=== PATIENT | male | born 1950 | race Caucasian/White ===

== ENCOUNTER 2020-06-27 19:14 | Inpatient (IN) | payer OTHER, MEDICARE, SELFPAY ==
[2020-06-27 19:15] VITALS: BP 143/74; PULSE 74; RESP 16; TEMP 36.8; O2SAT 95; BMI 25.7
[2020-06-27 19:31] LABS: Absolute Lymphocyte Count 0.45 X10^3/uL (0.83-4.51); Absolute Neutrophil Count 4.8 X10^3/uL (2.0-7.7); Basophil# 0.01 X10^3/uL; Basophil% 0.2 % (0-1); Eosinophil# 0.05 X10^3/uL; Eosinophils% 0.8 % (0-5); Hematocrit 32.4 % (40-54); Hemoglobin 9.9 g/dL (13.0-16.5); Lymphocyte # 0.45 X10^3/ul (4.0); Lymphocyte % 7.5 % (19-41); Mean Corp Hgb Conc 30.6 g/dL (32-36); Mean Corpuscular Hgb 29.8 pg (27.0-32.0); Mean Corpuscular Volume 97.6 fL (80-94); Mean Platelet Vol. 9.7 fl (6.2-12.0); Monocyte# 0.63 X10^3/uL; Monocyte% 10.5 % (0-10); NRBC Flagged by Analyzer 0 % (0-5); Neutrophil # 4.79 X10^3/uL (2.7-7.7); Neutrophil % 79.5 % (47-70); POSITIVE DIFFERENTIAL YES; Platelet Count 164 K/mm3 (150-450); RBC Distribution Width SD 46.5 fl (35.1-43.9); Red Blood Count 3.32 M/mm3 (4.6-6.2)
[2020-06-27 19:32] LABS: Differential Indicated SCAN CRITERIA MET
[2020-06-27 19:47] LABS: Anion Gap 10 (5-15); BUN 83 mg/dL (7-18); BUN/Creat Ratio 16.8 RATIO (10-20); Calcium,Total 8.3 mg/dL (8.5-10.1); Chloride 112 mmol/L (98-107); Creatinine, Serum 4.93 mg/dL (0.70-1.30); EST Glomerular Filtration Rate 13 mL/min (>60); Est Glom Filt Rate - Afr Amer 15 mL/min (>60); Estimated Creatinine Clearance 12.47 ml/min; Glucose 108 mg/dL (74-106); Potassium 5.9 mmol/L (3.5-5.1); Sodium Level 141 mmol/L (136-145)
[2020-06-27 20:22] LABS: Differential Comment SCANNED
--- NOTE | 2020-06-27 21:34 | US_ITS ---
HISTORY: Right lower extremity redness. Swelling. Open cysts. Cellulitis. EXAMINATION: US Venous Duplex LE Unilat / Limited TECHNIQUE: Caba scale, pulse wave, and color flow Doppler imaging was performed of the lower extremity venous system. The right greater saphenous, common femoral, femoral, and popliteal veins were interrogated. COMPARISON: None. 5 images end 11 cine clips. FINDINGS: Atherosclerotic disease is present within the right common femoral artery There is normal compression, augmentation, and signal throughout the visualized deep lower extremity veins. The left common femoral vein was also imaged. No Intraluminal filling defects are perceived within the insonated veins. US/Venous Duplex Imag/Limited/Uni IMPRESSION: No sonographic evidence of deep venous thrombosis. at 0011 Reported and signed by: Narendra Bailey MD Electronically Signed: Narendra Bailey MD at 0:09 EDT Tel , Service support ,
--- NOTE | 2020-06-27 22:28 | ED.VISSUMM ---
- ER Visit Summary Date of Service: 06/27/20 Chief Complaint: Cellulitis History of Present Illness: The patient is a 70 M presenting with cellulitis right lower extremity. This started approximately 1 week ago and has been progressively worsening. He states he noticed a cyst on his right lower extremity that is now increasing in size. He saw his primary care physician and had a outpatient ultrasound ordered which is scheduled for next week. He denies fever, chest pain, shortness of breath, other symptoms. He is currently awaiting kidney transplant. Physical Examination: Vitals are stable. Patient is afebrile. Alert no acute distress. HEENT exam is unremarkable. Neck is supple. Lungs are clear and equal bilaterally. Heart is regular rate and rhythm. Extremities he has erythema below right knee. He has 2 small fluctuant abscesses lateral aspect of right lower extremity. Normal distal pulses. Skin is warm and dry. No focal neurologic deficit. Remainder of exam is unremarkable. Emergency Department Course and Treatment: I&D was performed. Anesthetized with lidocaine. 2 small abscesses are drained. Incised with 11 blade. Small amount of pus was drained. Irrigated with saline. Wound and blood cultures were sent. He was given clindamycin IV. CBC, chemistries unremarkable other than BUN 83, creatinine 4.93, potassium 5.9. Venous Doppler shows no evidence of DVT. Discussed with the hospitalist. He was given albuterol, insulin, glucose for his hyperkalemia. He will be admitted. Disposition: Admission Impression: Right lower extremity cellulitis, I&D, hyperkalemia This note was generated with Smart Eye dictation software. It may contain incorrect words, spelling, and punctuation that were not noted in review of the chart prior to signing ED Disposition - Plan for ED Patient:
--- NOTE | 2020-06-27 22:48 | HP.PCM_ITS ---
Problem List (1) Cellulitis Status: Acute History of Present Illness Date of Admission: 06/27/20 Chief Complaint: Erythema of his right leg. The patient is a 70 year old M with a significant history of end-stage renal disease; right kidney transplantation and currently on kidney transplant list; and hypertension who presents to the emergency department with erythema of his right leg that started about 3 days ago. Associated with his symptoms is pain and swelling of his right leg. About a week ago he began to have bullous lesions on his right leg. Two of these bullous lesions increase in size tremendously before presentation. Emergency department doctor incised and drained the 2 biggest bullous lesions.. Because of the bullous lesions patient went to PCPs office and venous Dopplers of his right extremity was ordered but not done. At emergency department venous duplex was obtained. Venous duplex did not show any DVT. Past Medical History Medical History: Medical History (Last Reviewed 06/28/20 @ 04:[address] Curry Jaimes MD) Kidney transplant candidate Z76.82 Hypertension I10 Allergies cephalexin [From Keflex] Allergy (Verified 06/27/20 19:18) Swelling triamcinolone [From Kenalog] Allergy (Verified 06/27/20 19:18) Swelling Home Medications: Ambulatory Orders Medication Instructions Recorded Amlodipine-Benazepril 2.5-10 1 tab PO DAILY 06/27/20 Prednisone 5 mg PO DAILY 06/27/20 Torsemide [Demadex] 20 mg PO DAILY 06/27/20 Amlodipine/Benazepril [Lotrel 1 tab PO QHS 06/28/20 10-40 MG Capsule] Cyclosporine 100 mg PO BID 06/28/20 Gabapentin [Neurontin] 200 mg PO DAILY 06/28/20 Mycophenolate Mofetil [Cellcept] 1,000 mg PO BID 06/28/20 Surgical History: Surgical History (Last Updated 06/28/20 @ 02:[address] Curry Jaimes MD) Kidney transplant recipient Z94.0 Status post fracture of right tibia Z87.81 Smoking Status: Never smoker - *Family History Maternal History Items: Stroke Paternal History Items: Heart Disease Review of Systems Constitutional: Denies: Chills, Fever, Weight Change HEENT: Denies: Head Aches, Sinus Congestion, Sinus Drainage Cardiovascular: Denies: Chest Pain, Palpitations Respiratory: Denies: Cough, Shortness of breath at rest, Sputum production Gastrointestinal: Denies: Abdominal Pain, Nausea, Vomiting Genitourinary: Denies: Dysuria Musculoskeletal: Denies: Joint Pain, Joint Tenderness Skin: Reports: Lesions - Bolus lesions, Skin Changes - Erythema of right leg;. Denies: Rash, Wounds Neurological: Reports: Tremor. Denies: Focal weakness, Numbness, Tingling Psychiatric: Denies: Anxiety, Depression, Homicidal Ideations, Suicidal Ideations Hematologic/ Lymphatic: Denies: Easy Bruising, Easy Bleeding VTE Information - Inpt Only VTE Present on Admission: No VTE Mechan Device Prophylaxis: None VTE Pharm Prophylaxis ordered?: Yes Patient Problems: Active and Suspected Problems (Last Updated 06/28/20 @ 02:[address] Curry Jaimes MD) Cellulitis (Acute) - Physical Exam Vitals/I&O's: Vital Signs Temp Pulse Resp BP Pulse Ox 98.2 F 74 16 143/74 H 95 06/27/20 19:15 06/27/20 19:15 06/27/20 19:15 06/27/20 19:15 06/27/20 19:15 Oxygen Delivery Method Room Air Weight: 70.307 kg Body Mass Index (BMI) 25.7 General: Alert, Oriented x3, Cooperative HEENT: Atraumatic, PERRLA, EOMI, Normocephalic Neck: Supple, No JVD, Negative Carotid Bruits Lungs: Clear to auscultation, Normal air movement Cardiovascular: Regular rate, Normal S1, Normal S2, Murmur - At the mitral area, chronic. Patient stated that it developed after dialysis access graft was placed. Abdomen: Bowel Sounds Present, Soft, Non Tender Extremities: No edema, Capillary Refill Less than 3 Seconds, - - Dialysis access graft in right, bruit and thrill. Skin: No rashes, No breakdown, - - Edema and erythema of right leg. Incised bullous lesions; palpable nodule. Musculoskeletal: No Tenderness to Palpation of Joints or Extremities Neurological: Cranial nerves II-XII grossly intact, - - Tremulousness Psych/Mental Status: Normal Affect, Appropriate Laboratory Results 06/27/20 19:25: WBC 6.0, RBC 3.32 L, Hgb 9.9 L, Hct 32.4 L, MCV 97.6 H, MCH 29.8, MCHC 30.6 L, RDW Std Deviation 46.5 H, RDW Coeff of Rani 13.0, Plt Count 164, MPV 9.7, Immature Gran % (Auto) 1.500 H, Neut % (Auto) 79.5 H, Lymph % (Auto) 7.5 L, [place] % (Auto) 10.5 H, Eos % (Auto) 0.8, Baso % (Auto) 0.2, Absolute Neuts (auto) 4.8, Absolute Lymphs (auto) 0.45 L, Nucleated RBC % 0, Differential Comment SCANNED 06/27/20 19:25: Sodium 141, Potassium 5.9 H, Chloride 112 H, Carbon Dioxide 19.0 L, Anion Gap 10, BUN 83 H, Creatinine 4.93 H, Estim Creat Clear Calc 12.47, Est GFR (MDRD) Af Amer 15 L, Est GFR (MDRD) Non-Af 13 L, BUN/Creatinine Ratio 16.8, Glucose 108 H, Calcium 8.3 L Current Medications Clindamycin Phosphate 600 mg/ (Dextrose) 54 mls @ 100 mls/hr IV X1 ONE Stop: 06/27/20 22:56 Assessment/Plan All Active Problems (Last Updated 06/28/20 @ 02:[address] Curry Jaimes MD) Cellulitis (Acute) The patient is a 70 year old M with a significant history of end-stage renal disease; right kidney transplantation and currently on kidney transplant list; and hypertension who presents to the emergency department with erythema of his right leg; swelling and pain of same extremity and bullous lesions of the same extremity. Cellulitis with bullae. Incision and drainage of 2 bullae at the emergency department. Patient is allergic to cephalexin. Clindamycin was ordered at the ED and continued. Blood culture x2 was ordered at the emergency department; follow. Gram stain and wound culture of bullous lesions was obtained at emergency department; follow. Hyperkalemia His potassium on presentation was 5.9 EKG showed tall T waves and T wave inversion in lateral leads. Review of previous records shows history of left ventricular hypertrophy. Discussed emergency department doctor who gave albuterol; calcium gluconate; insulin and dextrose. Kayexalate and MiraLAX ordered. Serum bicarbonate was ordered. However patient refused stating that because of his history of kidney disease he has been advised not to take bicarbonate. End-stage renal disease He reports baseline creatinine between 4-5.6. On presentation his creatinine was 4.93, stable. Patient is on transplantation list. On home Demadex. Therapeutic interchange with furosemide while inpatient. Hypertension On presentation blood pressure was now within goal Amlodipine and BRITNI inhibitor continued Diuretics as above Trend blood pressure and adjust blood pressure medications. History of kidney transplant Prednisone, CellCept, and cyclosporine continued. DVT prophylaxis Subcutaneous heparin. Inpatient E&M: 20183 Init Hosp L3
--- NOTE | 2020-06-27 22:55 | EKG12_ITS ---
Test Reason : DYSRHYTHMIA Blood Pressure : / mmHG Vent. Rate : 076 BPM Atrial Rate : 076 BPM P-R Int : 196 ms QRS Dur : 092 ms QT Int : 372 ms P-R-T Axes : 037 043 073 degrees QTc Int : 418 ms Sinus rhythm with Premature atrial complexes Voltage criteria for left ventricular hypertrophy T wave abnormality, consider lateral ischemia Abnormal ECG Confirmed by MATT VU, MALAIKA ([id number]), editor book MIR DELACRUZ ([id number]) on 06/30/2020 1:50:46 PM Referred By: Confirmed By:MALAIKA GUTIERREZ MD
[2020-06-27 23:15] VITALS: PULSE 76; RESP 16
[2020-06-27] MEDS: Albuterol 2.5 MG/3 ML VIAL.NEB. INHALATION (23:15)
[2020-06-27] MEDS: Insulin Lispro 5 UNIT in Syringe 0 ML 3 UNIT IV (23:26)
[2020-06-27] MEDS: Dextrose 50%-Water 25 GM/50 ML DISP.SYRIN IV (23:27)
[2020-06-28] VITALS (12 sets, daily range): BP systolic 120–144; BP diastolic 53–66; PULSE 65–97; RESP 15–18; TEMP 36.6–37.4; O2SAT 98–100; BMI 25.7; BMI 25.8
[2020-06-28] MEDS: Calcium Gluconate 1 GM/10 ML Vial IV (00:17)
[2020-06-28] MEDS: Polyethylene Glycol 3350 17 GM PACKET 34 GM PO (01:42)
[2020-06-28] MEDS: Sodium Polystyrene Sulfonate 15 GM/60 ML UDC 30 GM PO (02:00)
[2020-06-28] MEDS: 0.9% Saline Lock 10 ML Syringe IV ×2 (05:14→14:00)
[2020-06-28 06:48] LABS: Absolute Lymphocyte Count 0.72 X10^3/uL (0.83-4.51); Absolute Neutrophil Count 2.9 X10^3/uL (2.0-7.7); Basophil# 0.02 X10^3/uL; Basophil% 0.4 % (0-1); Eosinophil# 0.09 X10^3/uL; Hematocrit 28.3 % (40-54); Hemoglobin 8.5 g/dL (13.0-16.5); Lymphocyte # 0.72 X10^3/ul (4.0); Mean Corpuscular Hgb 28.9 pg (27.0-32.0); Mean Corpuscular Volume 96.3 fL (80-94); Mean Platelet Vol. 9.9 fl (6.2-12.0); Monocyte# 0.75 X10^3/uL; Monocyte% 16.7 % (0-10); NRBC Flagged by Analyzer 0 % (0-5); Neutrophil # 2.86 X10^3/uL (2.7-7.7); Neutrophil % 63.8 % (47-70); Platelet Count 157 K/mm3 (150-450); Red Blood Count 2.94 M/mm3 (4.6-6.2); White Blood Count 4.5 K/mm3 (4.4-11.0)
[2020-06-28 07:05] LABS: Anion Gap 9 (5-15); BUN 86 mg/dL (7-18); BUN/Creat Ratio 17.7 RATIO (10-20); Calcium,Total 8.4 mg/dL (8.5-10.1); Chloride 113 mmol/L (98-107); Creatinine, Serum 4.85 mg/dL (0.70-1.30); EST Glomerular Filtration Rate 13 mL/min (>60); Est Glom Filt Rate - Afr Amer 15 mL/min (>60); Estimated Creatinine Clearance 12.68 ml/min; Glucose 119 mg/dL (74-106); Potassium 5.1 mmol/L (3.5-5.1); Sodium Level 141 mmol/L (136-145)
[2020-06-28] MEDS: Furosemide 40 MG Tablet PO (08:22)
[2020-06-28] MEDS: Mycophenolate Mofetil 250 MG Capsule 1000 MG PO ×2 (08:22→21:19)
[2020-06-28] MEDS: predniSONE 5 MG Tablet PO (08:22)
[2020-06-28] MEDS: amLODIPine 2.5 MG Tablet PO (08:23)
[2020-06-28] MEDS: Lisinopril 10 MG Tablet PO (08:24)
--- NOTE | 2020-06-28 08:46 | PN_ITS ---
Patient Problems: Active and Suspected Problems (Last Reviewed 06/28/20 @ 04:[address] Curry Jaimes MD) Cellulitis (Acute) Subjective: Doing well, no issues overnight. States that the pain in his right leg is better Vitals/I&O's: Vital Signs Temp Pulse Resp BP Pulse Ox 97.8 F 74 16 143/64 H 99 06/28/20 05:20 06/28/20 08:15 06/28/20 05:20 06/28/20 08:15 06/28/20 05:20 Oxygen Delivery Method Room Air Weight: 154 lb 12.232 oz Body Mass Index (BMI) 25.7 Intake and Output for Last 24 Hours 06/26/20 06/27/20 06/28/20 23:59 23:59 23:59 Intake Total 0.05 / 0.05 548 / 548 Output Total 230 / 230 Balance 0.05 / 0.05 318 / 318 General: Alert, Oriented x3, Cooperative, No apparent distress HEENT: Atraumatic, PERRLA, EOMI, Normocephalic Oral: Moist Mucosa Neck: Supple, No JVD Lungs: Clear to auscultation, Normal air movement, No rhonchi, No wheeze, No rales Cardiovascular: Regular rate, Regular Rhythm, Normal S1, Normal S2, Murmur - Secondary to his left upper extremity fistula Abdomen: Soft, Non Tender, Non-Distended, No Hepato-splenomegaly Extremities: No edema, Capillary Refill Less than 3 Seconds Skin: Ulcer/ Wound - Sized lesions in his right leg, currently dressed Neurological: Neuro grossly intact, Sensory exam intact to light touch and pain Psych/Mental Status: Normal Affect, Appropriate Laboratory Results 06/27/20 19:25: WBC 6.0, RBC 3.32 L, Hgb 9.9 L, Hct 32.4 L, MCV 97.6 H, MCH 29.8, MCHC 30.6 L, RDW Std Deviation 46.5 H, RDW Coeff of Rani 13.0, Plt Count 164, MPV 9.7, Immature Gran % (Auto) 1.500 H, Neut % (Auto) 79.5 H, Lymph % (Auto) 7.5 L, [place] % (Auto) 10.5 H, Eos % (Auto) 0.8, Baso % (Auto) 0.2, Absolute Neuts (auto) 4.8, Absolute Lymphs (auto) 0.45 L, Nucleated RBC % 0, Differential Comment SCANNED 06/27/20 19:25: Sodium 141, Potassium 5.9 H, Chloride 112 H, Carbon Dioxide 19.0 L, Anion Gap 10, BUN 83 H, Creatinine 4.93 H, Estim Creat Clear Calc 12.47, Est GFR (MDRD) Af Amer 15 L, Est GFR (MDRD) Non-Af 13 L, BUN/Creatinine Ratio 16.8, Glucose 108 H, Calcium 8.3 L 06/28/20 06:13: WBC 4.5, RBC 2.94 L, Hgb 8.5 L, Hct 28.3 L, MCV 96.3 H, MCH 28.9, MCHC 30.0 L, RDW Std Deviation 46.0 H, RDW Coeff of Rani 13.0, Plt Count 157, MPV 9.9, Immature Gran % (Auto) 1.100 H, Neut % (Auto) 63.8, Lymph % (Auto) 16.0 L, [place] % (Auto) 16.7 H, Eos % (Auto) 2.0, Baso % (Auto) 0.4, Absolute Neuts (auto) 2.9, Absolute Lymphs (auto) 0.72 L, Nucleated RBC % 0 06/28/20 06:13: Sodium 141, Potassium 5.1, Chloride 113 H, Carbon Dioxide 19.0 L , Anion Gap 9, BUN 86 H, Creatinine 4.85 H, Estim Creat Clear Calc 12.68, Est GFR (MDRD) Af Amer 15 L, Est GFR (MDRD) Non-Af 13 L, BUN/Creatinine Ratio 17.7, Glucose 119 H, Calcium 8.4 L Current Medications Acetaminophen (Tylenol) 650 mg PO Q6H PRN PRN PRN Reason: Pain Score 1-10/Temp > 100.7 F Amlodipine Besylate (Norvasc) 2.5 mg PO DAILY [facility] Last Admin: 06/28/20 08:23 Dose: 2.5 mg Documented by: Cyclosporine (Gengraf) 100 mg PO BID [facility] Last Admin: 06/28/20 08:28 Dose: 100 mg Documented by: Furosemide (Lasix) 40 mg PO DAILY [facility] Last Admin: 06/28/20 08:22 Dose: 40 mg Documented by: Gabapentin (Neurontin) 200 mg PO DAILY [facility] Heparin Sodium (Porcine) (Heparin Na) 5,000 unit SC Q8 [facility] Last Admin: 06/28/20 05:23 Dose: Not Given Documented by: Clindamycin Phosphate 600 mg/ (Dextrose) 54 mls @ 100 mls/hr IV Q8 [facility] Last Infusion: 06/28/20 05:53 Dose: Infused Documented by: Lisinopril (Zestril) 10 mg PO DAILY [facility] Last Admin: 06/28/20 08:24 Dose: 10 mg Documented by: Melatonin (Melatonin) 3 mg PO QHS PRN PRN PRN Reason: INSOMNIA Mycophenolate Mofetil (Cellcept) 1,000 mg PO BID [facility] Last Admin: 06/28/20 08:22 Dose: 1,000 mg Documented by: Nutritional Formula (Lactose Free) (Ensure Enlive) 120 ml PO 4X/DAY [facility] Last Admin: 06/28/20 08:12 Dose: 120 ml Documented by: Ondansetron HCl (Zofran) 4 mg IV Q8H PRN PRN PRN Reason: NAUSEA/VOMITING Polyethylene Glycol (Miralax) 34 gm PO X1 PRN PRN Reason: Bowel Movement Prednisone () 5 mg PO DAILYCM [facility] Last Admin: 06/28/20 08:22 Dose: 5 mg Documented by: Sodium Chloride () 10 - 40 ml IV UD PRN PRN Reason: SALINE FLUSH Last Admin: 06/28/20 05:14 Dose: 10 ml Documented by: STROKE Vital Signs/Narrative: Vital Signs Temp Pulse Resp BP BP Pulse Ox 06/28/20 08:15 74 143/64 H 06/28/20 06:59 66 06/28/20 05:20 97.8 F 65 16 120/53 L 99 Medical Necessity - Tobacco Use Smoking Status: Never smoker Assessment/Plan All Active Problems (Last Reviewed 06/28/20 @ 04:[address] Curry Jaimes MD) Cellulitis (Acute) 1. Right lower extremity cellulitis with bullous lesions -The bullous lesions were drained and sent for culture -He is allergic with Keflex secondary to swelling therefore he was started on clindamycin -Follow-up culture data 2. 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
--- NOTE | 2020-06-28 09:44 | CASEMGMT ---
RN CM Assessment Note Intro role of CM to patient in room. Patient is awake, alert and able to participate, however answers in brief responses and does not elaborate with answers. Presentation: erythem and swelling of R leg Diagnosis: cellulitis with bullous lesions PCP: Dr. Hallman Specialists: Transplant physicians @ [facility] Insurance: [id number] Preferred Pharmacy: [facility] Prescription Benefit: yes LNOK: , Ashly Phan Living Arrangements: Lives independently with his . States no care needs. Tranportation: drives DME: cpap only HHC: no history SNF: no history Patient DC Goals: home DC Plan: home. No care needs identified @ this time. CM available for discharge planning coordination. Contact CM for any concerns/needs that may arise. Bandar LOVEN RN ACM
[2020-06-28] MEDS: Gabapentin 100 MG Capsule 200 MG PO (21:19)
[2020-06-29 03:00] VITALS: PULSE 64
[2020-06-29 03:15] VITALS: BP 129/60; PULSE 64; RESP 16; TEMP 36.7; O2SAT 100
[2020-06-29] MEDS: 0.9% Saline Lock 10 ML Syringe IV (05:57)
[2020-06-29 06:05] LABS: Absolute Lymphocyte Count 0.87 X10^3/uL (0.83-4.51); Absolute Neutrophil Count 2.8 X10^3/uL (2.0-7.7); Basophil# 0.02 X10^3/uL; Basophil% 0.5 % (0-1); Eosinophil# 0.18 X10^3/uL; Eosinophils% 4.2 % (0-5); Hematocrit 27.6 % (40-54); Hemoglobin 8.4 g/dL (13.0-16.5); Lymphocyte # 0.87 X10^3/ul (4.0); Lymphocyte % 20.1 % (19-41); Mean Corp Hgb Conc 30.4 g/dL (32-36); Mean Corpuscular Volume 95.2 fL (80-94); Monocyte# 0.47 X10^3/uL; Monocyte% 10.9 % (0-10); NRBC Flagged by Analyzer 0 % (0-5); Neutrophil # 2.76 X10^3/uL (2.7-7.7); Neutrophil % 63.6 % (47-70); Platelet Count 162 K/mm3 (150-450); RBC Distribution Width CV 12.9 % (11.6-14.6); RBC Distribution Width SD 45.1 fl (35.1-43.9); White Blood Count 4.3 K/mm3 (4.4-11.0)
[2020-06-29 06:27] LABS: Anion Gap 9 (5-15); BUN 84 mg/dL (7-18); BUN/Creat Ratio 17.9 RATIO (10-20); Calcium,Total 7.9 mg/dL (8.5-10.1); Chloride 113 mmol/L (98-107); Creatinine, Serum 4.69 mg/dL (0.70-1.30); EST Glomerular Filtration Rate 13 mL/min (>60); Est Glom Filt Rate - Afr Amer 16 mL/min (>60); Estimated Creatinine Clearance 13.11 ml/min; Glucose 99 mg/dL (74-106); Potassium 5.3 mmol/L (3.5-5.1); Sodium Level 142 mmol/L (136-145)
[2020-06-29 07:00] VITALS: PULSE 63
[2020-06-29 08:07] VITALS: BP 129/71; PULSE 65; RESP 20; TEMP 36.4; O2SAT 96
[2020-06-29] MEDS: Lisinopril 10 MG Tablet PO ×2 (08:16→08:20)
[2020-06-29] MEDS: predniSONE 5 MG Tablet PO ×2 (08:19)
[2020-06-29] MEDS: Furosemide 40 MG Tablet PO ×2 (08:20)
[2020-06-29] MEDS: Mycophenolate Mofetil 250 MG Capsule 1000 MG PO (08:22)
[2020-06-29] MEDS: amLODIPine 2.5 MG Tablet PO (08:23)
--- NOTE | 2020-06-29 09:07 | DCINST_ITS ---
- Discharge Diagnoses Current Active Problems: Current Active and Chronic Problems (Last Reviewed 06/28/20 @ 04:[address] Curry Jaimes MD) Cellulitis (Acute) You will use the following diet at home:: Cardiac Your food should be the consistency of: Regular Your liquids should be the consistency of: Regular/Thin Discharge Activity: Return to Normal Activity Call your doctor if you observe: Fever of 101 or Higher, Shortness of breath, Dizziness, Fainting spells, Swelling in the ankles, Chest pain, Increased palpitations (irregular heartbeat) Allergies/Adverse Reactions: Allergies cephalexin [From Keflex] Allergy (Verified 06/27/20 19:18) Swelling triamcinolone [From Kenalog] Allergy (Verified 06/27/20 19:18) Swelling Medications to take at Discharge Amlodipine-Benazepril 2.5-10 1 tab PO DAILY 06/27/20 Prednisone 5 mg PO DAILY 06/27/20 Torsemide [Demadex] 20 mg PO DAILY 06/27/20 Amlodipine/Benazepril [Lotrel 10-40 MG Capsule] 1 tab PO QHS 06/28/20 Cyclosporine 100 mg PO BID 06/28/20 Gabapentin [Neurontin] 200 mg PO DAILY 06/28/20 Mycophenolate Mofetil [Cellcept] 1,000 mg PO BID 06/28/20 Clindamycin HCl 300 mg PO 4X/DAY #40 cap 06/29/20 The following prescriptions were given: Clindamycin HCl 300 mg PO 4X/DAY #40 cap Transmission Status: Pending to [id number] Primary Care Physician: Barry Hallman DO [Primary Care Provider] - Please follow up with your Primary Care Physician in: 3-5 days Test Results: Test results from this visit will be discussed in further detail at your follow- up appointment, if applicable.
--- NOTE | 2020-06-29 09:25 | DS.PCM_ITS ---
Discharge Date and Diagnosis - Problem List Patient Problems: Active and Suspected Problems (Last Reviewed 06/28/20 @ 04:[address] Curry Jaimes MD) Cellulitis (Acute) Date of Admission: 06/27/20 Date of Discharge: 06/29/20 - Primary Discharge Diagnosis Acute Problems: Active Problems (Last Reviewed 06/28/20 @ 04:[address] Curry Jaimes MD) Cellulitis (Acute) Hospital Course and Treatment Imaging Results: Clinical Impression(s) from Imaging Studies Venous Duplex 06/27/20 21:34 IMPRESSION: No sonographic evidence of deep venous thrombosis. at 0011 Reported and signed by: Narendra Bailey MD Electronically Signed: Narendra Bailey MD at 0:09 EDT Tel , Service support , Operations: None Procedures: None Summary of Care Provided: Per HPI: The patient is a 70 year old M with a significant history of end-stage renal disease; right kidney transplantation and currently on kidney transplant list; and hypertension who presents to the emergency department with erythema of his right leg that started about 3 days ago. Associated with his symptoms is pain and swelling of his right leg. About a week ago he began to have bullous lesions on his right leg. Two of these bullous lesions increase in size tremendously before presentation. Emergency department doctor incised and drained the 2 biggest bullous lesions.. Because of the bullous lesions patient went to PCPs office and venous Dopplers of his right extremity was ordered but not done. At emergency department venous duplex was obtained. Venous duplex did not show any DVT. Hospital Course: 1. Right lower extremity cellulitis with bullous [id number] male with a history of kidney failure status post kidney transplant he was on the list for another kidney transplant presents with cellulitis. He states that it had started about a week ago and had gone to his primary care doctor who had ordered an ultrasound of his leg however while waiting to get the ultrasound the symptoms got worse and then he developed 2 bullous lesions that were drained in the ER. These have both grown staph aureus sensitive to clindamycin. 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 I discussed with him the risks and benefits of discharge and he expressed understanding. He will go home today with clindamycin for 10 days given his immunocompromise nature. He is to follow-up with his PCP in 3 to 5 days. 2. 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 His home medications were continued where appropriate Patient Problems: Active and Suspected Problems (Last Reviewed 06/28/20 @ 04:[address] Curry Jaimes MD) Cellulitis (Acute) - Physical Exam Vitals/I&O's: Vital Signs Temp Pulse Resp BP Pulse Ox 97.5 F L 65 20 H 129/71 H 96 06/29/20 08:07 06/29/20 08:07 06/29/20 08:07 06/29/20 08:07 06/29/20 08:07 Oxygen Flow Rate (L/min) 0 Oxygen Delivery Method Room Air Weight: 154 lb 12.232 oz Body Mass Index (BMI) 25.7 Intake and Output for Last 24 Hours 06/27/20 06/28/20 06/29/20 23:59 23:59 23:59 Intake Total 0.05 / 0.05 1696 / 1696 174 / 174 Output Total 230 / 230 Balance 0.05 / 0.05 1466 / 1466 174 / 174 General: Alert, Oriented x3, Cooperative, No apparent distress HEENT: Atraumatic, PERRLA, EOMI, Normocephalic Oral: Moist Mucosa Neck: Supple, No JVD Lungs: Clear to auscultation, Normal air movement, No rhonchi, No wheeze, No rales Cardiovascular: Regular rate, Regular Rhythm, Normal S1, Normal S2, Murmur - Secondary to his left upper extremity fistula Abdomen: Soft, Non Tender, Non-Distended, No Hepato-splenomegaly Extremities: No edema, Capillary Refill Less than 3 Seconds Skin: Ulcer/ Wound -2 nickel sized lesions on the lateral aspect of his right felix not draining and erythema is much improved per the patient. There is also a medial area of fluctuance that he says has gone down significantly since he started the antibiotics. Neurological: Neuro grossly intact, Sensory exam intact to light touch and pain Psych/Mental Status: Normal Affect, Appropriate Microbiology Past 72 Hours 06/27/20 21:45 Wound Abcess - Leg Gram Stain - Final 06/27/20 21:45 Wound Abcess - Leg Wound Culture - Final Staphylococcus aureus Laboratory Results 06/29/20 05:20: WBC 4.3 L, RBC 2.90 L, Hgb 8.4 L, Hct 27.6 L, MCV 95.2 H, MCH 29.0, MCHC 30.4 L, RDW Std Deviation 45.1 H, RDW Coeff of Rani 12.9, Plt Count 162, MPV 10.0, Immature Gran % (Auto) 0.700, Neut % (Auto) 63.6, Lymph % (Auto) 20.1, [place] % (Auto) 10.9 H, Eos % (Auto) 4.2, Baso % (Auto) 0.5, Absolute Neuts (auto) 2.8, Absolute Lymphs (auto) 0.87, Nucleated RBC % 0 06/29/20 05:20: Sodium 142, Potassium 5.3 H, Chloride 113 H, Carbon Dioxide 20.0 L, Anion Gap 9, BUN 84 H, Creatinine 4.69 H, Estim Creat Clear Calc 13.11, Est GFR (MDRD) Af Amer 16 L, Est GFR (MDRD) Non-Af 13 L, BUN/Creatinine Ratio 17.9, Glucose 99, Calcium 7.9 L Current Medications Acetaminophen (Tylenol) 650 mg PO Q6H PRN PRN PRN Reason: Pain Score 1-10/Temp > 100.7 F Amlodipine Besylate (Norvasc) 2.5 mg PO DAILY [facility] Last Admin: 06/29/20 08:23 Dose: 2.5 mg Documented by: Cyclosporine (Gengraf) 100 mg PO BID [facility] Last Admin: 06/29/20 08:19 Dose: 100 mg Documented by: Furosemide (Lasix) 40 mg PO DAILY [facility] Last Admin: 06/29/20 08:20 Dose: 40 mg Documented by: Gabapentin (Neurontin) 200 mg PO DAILY@2200 [facility] Last Admin: 06/28/20 21:19 Dose: 200 mg Documented by: Heparin Sodium (Porcine) (Heparin Na) 5,000 unit SC Q8 [facility] Last Admin: 06/29/20 05:57 Dose: Not Given Documented by: Clindamycin Phosphate 600 mg/ (Dextrose) 54 mls @ 100 mls/hr IV Q8 [facility] Last Infusion: 06/29/20 06:30 Dose: Infused Documented by: Lisinopril (Zestril) 10 mg PO DAILY [facility] Last Admin: 06/29/20 08:20 Dose: 10 mg Documented by: Melatonin (Melatonin) 3 mg PO QHS PRN PRN PRN Reason: INSOMNIA Mycophenolate Mofetil (Cellcept) 1,000 mg PO BID [facility] Last Admin: 06/29/20 08:22 Dose: 1,000 mg Documented by: Nutritional Formula (Lactose Free) (Ensure Enlive) 120 ml PO BID [facility] Last Admin: 06/29/20 08:21 Dose: 120 ml Documented by: Ondansetron HCl (Zofran) 4 mg IV Q8H PRN PRN PRN Reason: NAUSEA/VOMITING Polyethylene Glycol (Miralax) 34 gm PO X1 PRN PRN Reason: Bowel Movement [facility] Admin: 06/29/20 08:19 Dose: 5 mg Documented by: Sodium Chloride () 10 - 40 ml IV UD PRN PRN Reason: SALINE FLUSH Last Admin: 06/29/20 05:57 Dose: 10 ml Documented by: Discharge Activity: Return to Normal Activity Call your doctor if you observe: Fever of 101 or Higher, Shortness of breath, Dizziness, Fainting spells, Swelling in the ankles, Chest pain, Increased palpitations (irregular heartbeat) Home Medications: Medications to take at Discharge Amlodipine-Benazepril 2.5-10 1 tab PO DAILY 06/27/20 Prednisone 5 mg PO DAILY 06/27/20 Torsemide [Demadex] 20 mg PO DAILY 06/27/20 Amlodipine/Benazepril [Lotrel 10-40 MG Capsule] 1 tab PO QHS 06/28/20 Cyclosporine 100 mg PO BID 06/28/20 Gabapentin [Neurontin] 200 mg PO DAILY 06/28/20 Mycophenolate Mofetil [Cellcept] 1,000 mg PO BID 06/28/20 Clindamycin HCl 300 mg PO 4X/DAY #40 cap 06/29/20 Following Prescriptions Were Given to Patient: Clindamycin HCl 300 mg PO 4X/DAY #40 cap Transmission Status: Pending to [facility]30 Primary Care Physician: Hallman,Barry, DO [Primary Care Provider] - Please follow up with your Primary Care Physician in: 3-5 days Please Follow Up With: Barry Hallman DO Disposition: Home Minutes spent on discharge:: 35 Patient Condition:: Stable Medical Necessity - Tobacco Use Smoking Status: Never smoker Meaningful Use Info Meaningful Use Diagnoses (Choose all that apply): None applicable Inpatient E&M: 40420 Disch Hosp
== END 2020-06-29 12:28 | disposition home or self-care (01) | DRG 602 ==
LOC: ED 20:32 → PCU 06-28 00:18
PROVIDERS: Admitting Provider Hospitalist; Emergency Provider Emergency Medicine; PCP Student in an Organized Health Care Education/Training Program; Visit Provider Family Medicine
DX: L03.115 Cellulitis of right lower limb (principal); N18.6 End stage renal disease; I12.0 Hypertensive chronic kidney disease with stage 5 chronic kidney disease or end stage renal disease; Z94.0 Kidney transplant status; Z76.82 Awaiting organ transplant status; L02.415 Cutaneous abscess of right lower limb; E87.5 Hyperkalemia; Z79.899 Other long term (current) drug therapy; A49.01 Methicillin susceptible Staphylococcus aureus infection, unspecified site
CPT/HCPCS: 10060; 36415; 80048; 85025; 87040; 87070; 87077; 87186; 87205; 93005; 93971; 94640; 97802; 99282; A4216; J0610

== ENCOUNTER 2021-03-17 19:33 | Observation (INO) | payer OTHER, MEDICARE, SELFPAY ==
[2020-06-28 00:57] VITALS: BMI 25.7
[2021-03-17 19:35] VITALS: BP 129/65; PULSE 78; RESP 18; TEMP 37.1; O2SAT 99; BMI 25.0
--- NOTE | 2021-03-17 20:10 | EKG12_ITS ---
Test Reason : ABD LABS Blood Pressure : / mmHG Vent. Rate : 074 BPM Atrial Rate : 074 BPM P-R Int : 216 ms QRS Dur : 090 ms QT Int : 386 ms P-R-T Axes : 066 047 079 degrees QTc Int : 428 ms Sinus rhythm with 1st degree A-V block Voltage criteria for left ventricular hypertrophy Nonspecific T wave abnormality Abnormal ECG Confirmed by MATT VU, MALAIKA ([id number]), material expeditor LAINE HAMILTON ([id number]) on 03/20/2021 8:28:01 AM Referred By: CARRINGTON Confirmed By:MALAIKA GUTIERREZ MD
--- NOTE | 2021-03-17 20:28 | EX.ED.DYSGE1 ---
HPI <Dr. Curry Rico DO - Last Filed: 03/21/21 06:57> History of Present Illness Chief Complaint: Abn Labs Informant: patient Narrative Narrative: Patient is a 71-year-old male with a past medical history of kidney transplant 14 years ago. He is on immunosuppressants for this. His kidney function has been declining lately. He had outpatient lab testing to evaluate his anemia status. He was found to have hyperkalemia at that time. Patient has had some nausea over the past couple of days. He fluctuates between constipation diarrhea. He believes he is making less and less urine. He urinates approximately 3 times a day. He denies any urinary symptoms. Patient does have an AV fistula left arm. He states it has been accessed over the years for different things. He denies any fevers or chills. No chest pain, shortness of breath or heart palpitations. [facility] <Dr. Curry Rico DO - Last Filed: 03/21/21 06:57> [facility] Medical History (Updated 03/18/21 @ 22:[address] Curry Jaimes MD) Anxiety Depression Dialysis patient Hypertension Kidney disease Kidney transplant candidate Sleep apnea Home Medications Amlodipine-Benazepril 2.5-10 1 tab PO DAILY 06/27/20 [History Last Taken Unknown] prednisone 5 mg PO DAILY 06/27/20 [History Last Taken Unknown] torsemide 20 mg PO DAILY 06/27/20 [History Last Taken Unknown] Cyclosporine 100 mg PO BID 06/28/20 [History Last Taken Unknown] gabapentin 200 mg PO QHS 06/28/20 [History Last Taken Unknown] mycophenolate mofetil 1,000 mg PO BID 06/28/20 [History Last Taken Unknown] Allergy/AdvReac Type Severity Reaction Status Date / Time cephalexin [From Keflex] Allergy Swelling Verified 03/17/21 19:34 triamcinolone [From Kenalog] Allergy Swelling Verified 03/17/21 19:34 Family History Father CVA (cerebral vascular accident) Surgical History (Updated 03/18/21 @ 01:[address] Albaro Hernandez MD) Kidney transplant recipient Status post fracture of right tibia Social History Smoking Status: Never smoker ROS <Dr. Curry Rico DO - Last Filed: 03/21/21 06:57> ROS ED Constitutional Constitutional ED: Denies chills or fever(s) Eyes Eyes: Denies change in vision ENT ENT ED: Denies epistaxis or rhinorrhea Cardiovascular Cardiovascular: Denies chest pain or palpitations Respiratory/Chest Respiratory/Chest: Denies cough, dyspnea or dyspnea on exertion Gastrointestinal Gastrointestinal: Reports constipation, diarrhea, nausea and vomiting; Denies abdominal pain Genitourinary Genitourinary ED: Denies dysuria, hematuria or urinary frequency Musculoskeletal Musculoskeletal: Denies back pain or neck pain Integumentary Denies rash Neurologic Neurologic: Denies dizziness, headache(s) or weakness EXAM <Dr. Curry Rico DO - Last Filed: 03/21/21 06:57> Physical Exam Const Vital Signs: 03/17/21 19:35 03/17/21 19:55 03/17/21 21:11 Temperature 98.7 F Temperature Source Temporal Pulse Rate 78 71 Respiratory Rate 18 15 Respiratory Pattern Normal Blood Pressure 129/65 H Blood Pressure Mean 86 Pulse Ox 99 99 Oxygen Delivery Method Room Air Room Air 03/17/21 23:26 Temperature Temperature Source Pulse Rate 69 Respiratory Rate 21 H Respiratory Pattern Blood Pressure Blood Pressure Mean Pulse Ox 99 Oxygen Delivery Method Room Air Positive well nourished and well developed General Appearance ED: well developed and NAD HEENT Reports normocephalic, head/scalp atraumatic and moist mucous membranes Eyes PERRL and EOMs intact bilaterally Neck no lymphadenopathy and supple General: Negative for tenderness Chest Wall inspection of chest normal Resp normal respiratory effort and clear to auscultation bilaterally Auscultation: Negative for rales, rhonchi or wheezes Cardio regular rate and regular rhythm Rate: other Other Details: Holosystolic murmur GI normal to inspection, nondistended, normoactive bowel sounds and non-tender Palpation: soft; Negative for guarding or rebound tenderness present Back/Spine no CVA tenderness Extremity normal to inspection Extremity Narrative: Left AV fistula with palpable thrill General Extremety ED: Negative for edema or tenderness General Extremity: Negative for edema Neuro oriented x3, CN's II-XII intact bilaterally and no sensory deficits noted Sensorium / Orientation: alert Motor Exam: strength 5/5 throughout Psych mental status grossly normal Skin no rashes or lesions noted <Dr. Albaro Hernandez MD - Last Filed: 03/18/21 01:42> Physical Exam Const Vital Signs: 03/17/21 19:35 03/17/21 19:55 03/17/21 21:11 Temperature 98.7 F Temperature Source Temporal Pulse Rate 78 71 Respiratory Rate 18 15 Respiratory Pattern Normal Blood Pressure 129/65 H Blood Pressure Mean 86 Pulse Ox 99 99 Oxygen Delivery Method Room Air Room Air 03/17/21 23:26 Temperature Temperature Source Pulse Rate 69 Respiratory Rate 21 H Respiratory Pattern Blood Pressure Blood Pressure Mean Pulse Ox 99 Oxygen Delivery Method Room Air MDM <Dr. Curry Rico DO - Last Filed: 03/21/21 06:57> MDM MDM Narrative Medical decision making narrative: Patient presents to the ED with abnormal outpatient lab testing. He was found to be hyperkalemic. He does have a history of kidney transplant. Will check basic lab work here. His initial EKG does not show any signs of changes due to hyperkalemia. Work-up was significant for hyperkalemia. His creatinine seems to be near where his baseline is now. Patient will require transfer to the [facility] where he had his transplant performed. Patient is agreeable this plan. Patient signed out due to end of shift. He otherwise has been stable throughout ED stay. Lab Data Labs: Laboratory Results - last 24 hr 03/17/21 03/17/21 03/18/21 20:00 20:00 00:18 WBC 5.8 RBC 3.24 L Hgb 9.5 L Hct 32.5 L MCV 100.3 H MCH 29.3 MCHC 29.2 L RDW Std Deviation 51.6 H RDW Coeff of Rani 14.0 Plt Count 153 MPV 11.1 Immature Gran % (Auto) 0.300 Neut % (Auto) 81.1 H Lymph % (Auto) 8.5 L Parker % (Auto) 8.9 Eos % (Auto) 1.0 Baso % (Auto) 0.2 Absolute Neuts (auto) 4.7 Absolute Lymphs (auto) 0.49 L Nucleated RBC % 0 Differential Comment SCANNED Platelet Estimate ADEQUATE Anisocytosis RARE Macrocytosis RARE Sodium 141 Potassium 6.1 H* 6.0 H* Chloride 117 H Carbon Dioxide 11.0 L Anion Gap 13 BUN 157 H* Creatinine 7.07 H Estim Creat Clear Calc 8.26 Est GFR (MDRD) Af Amer 10 L Est GFR (MDRD) Non-Af 8 L BUN/Creatinine Ratio 22.2 H Glucose 105 Calcium 8.7 Total Bilirubin 0.50 AST 4 L ALT 9 L Alkaline Phosphatase 54 Troponin I 0.164 H Total Protein 6.7 Albumin 4.0 Globulin 2.7 Albumin/Globulin Ratio 1.5 EKG Initial EKG: Attestation: I personally reviewed and interpreted this EKG as follows: (Rate of 74 bpm in sinus rhythm. Prolonged CO interval with first-degree AV block. Normal axis. No significant ST elevations or depressions. No T wave abnormalities.) <Dr. Albaro Hernandez MD - Last Filed: 03/18/21 01:42> [facility] Lab Data Labs: Laboratory Results - last 24 hr 03/17/21 03/17/21 03/18/21 20:00 20:00 00:18 WBC 5.8 RBC 3.24 L Hgb 9.5 L Hct 32.5 L MCV 100.3 H MCH 29.3 MCHC 29.2 L RDW Std Deviation 51.6 H RDW Coeff of Rani 14.0 Plt Count 153 MPV 11.1 Immature Gran % (Auto) 0.300 Neut % (Auto) 81.1 H Lymph % (Auto) 8.5 L Parker % (Auto) 8.9 Eos % (Auto) 1.0 Baso % (Auto) 0.2 Absolute Neuts (auto) 4.7 Absolute Lymphs (auto) 0.49 L Nucleated RBC % 0 Differential Comment SCANNED Platelet Estimate ADEQUATE Anisocytosis RARE Macrocytosis RARE Sodium 141 Potassium 6.1 H* 6.0 H* Chloride 117 H Carbon Dioxide 11.0 L Anion Gap 13 BUN 157 H* Creatinine 7.07 H Estim Creat Clear Calc 8.26 Est GFR (MDRD) Af Amer 10 L Est GFR (MDRD) Non-Af 8 L BUN/Creatinine Ratio 22.2 H Glucose 105 Calcium 8.7 Total Bilirubin 0.50 AST 4 L ALT 9 L Alkaline Phosphatase 54 Troponin I 0.164 H Total Protein 6.7 Albumin 4.0 Globulin 2.7 Albumin/Globulin Ratio 1.5 Discharge Plan Dx/Rx/DC Orders Clinical Impression: Acute on chronic renal failure, History of renal transplant, Acute uremia, Hyperkalemia, diminished renal excretion Disposition Disposition: Acute Care Hospital [facility] Discharge Date/Time: 03/18/21 08:01
[2021-03-17 21:09] LABS: ALB/GLOB Ratio 1.5 RATIO (0.9-2.4); AST(SGOT) 4 U/L (15-37); Alanine Aminotransfer ALT/SGPT 9 U/L (16-61); Alkaline Phosphatase 54 U/L (45-117); Anion Gap 13 (5-15); BUN 157 mg/dL (7-18); BUN/Creat Ratio 22.2 RATIO (10-20); Calcium,Total 8.7 mg/dL (8.5-10.1); Chloride 117 mmol/L (98-107); Creatinine, Serum 7.07 mg/dL (0.70-1.30); EST Glomerular Filtration Rate 8 mL/min (>60); Est Glom Filt Rate - Afr Amer 10 mL/min (>60); Estimated Creatinine Clearance 8.26 ml/min; Globulin 2.7 g/dL (2.2-4.2); Glucose 105 mg/dL (74-106); Potassium 6.1 mmol/L (3.5-5.1); Protein, Total 6.7 g/dL (6.4-8.2); Sodium Level 141 mmol/L (136-145)
[2021-03-17 21:11] VITALS: PULSE 71; RESP 15; O2SAT 99
[2021-03-17] MEDS: Insulin Lispro 10 UNIT in Syringe 0 ML 6 UNIT IV (21:58)
[2021-03-17] MEDS: Dextrose 50%-Water 25 GM/50 ML DISP.SYRIN IV (21:58)
[2021-03-17] MEDS: Ondansetron 4 MG/2 ML Vial IV (22:18)
[2021-03-17] MEDS: Mycophenolate Mofetil 250 MG Capsule 1000 MG PO (22:22)
[2021-03-17 23:26] VITALS: PULSE 69; RESP 21; O2SAT 99
[2021-03-18] VITALS (13 sets, daily range): BP systolic 126–166; BP diastolic 55–78; PULSE 65–88; RESP 12–21; TEMP 36.3–37.2; O2SAT 95–100; BMI 25.4
[2021-03-18 01:00] LABS: Absolute Lymphocyte Count 0.49 X10^3/uL (0.83-4.51); Absolute Neutrophil Count 4.7 X10^3/uL (2.0-7.7); Basophil# 0.01 X10^3/uL; Basophil% 0.2 % (0-1); Eosinophil# 0.06 X10^3/uL; Hematocrit 32.5 % (40-54); Hemoglobin 9.5 g/dL (13.0-16.5); Lymphocyte # 0.49 X10^3/ul (0.83-4.51); Lymphocyte % 8.5 % (19-41); Mean Corp Hgb Conc 29.2 g/dL (32-36); Mean Corpuscular Hgb 29.3 pg (27.0-32.0); Mean Corpuscular Volume 100.3 fL (80-94); Mean Platelet Vol. 11.1 fl (6.2-12.0); Monocyte# 0.51 X10^3/uL; Monocyte% 8.9 % (0-10); NRBC Flagged by Analyzer 0 % (0-5); Neutrophil # 4.67 X10^3/uL (2.7-7.7); Neutrophil % 81.1 % (47-70); POSITIVE DIFFERENTIAL YES; Platelet Count 153 K/mm3 (150-450); RBC Distribution Width SD 51.6 fl (35.1-43.9); Red Blood Count 3.24 M/mm3 (4.6-6.2); White Blood Count 5.8 K/mm3 (4.4-11.0)
[2021-03-18 01:01] LABS: Differential Indicated SCAN CRITERIA MET
[2021-03-18 01:21] LABS: Anisocytosis RARE; Differential Comment SCANNED; Macrocytosis RARE; Platelet Estimate ADEQUATE (ADEQ)
--- NOTE | 2021-03-18 05:01 | ED.RN ---
CALLED [facility] THEY SAID THEY HAD NO BEDS AND THAT WE WAS STILL WAITING ON A BED ASSIGNMENT
--- NOTE | 2021-03-18 07:13 | NURSING ---
CALLED [facility], TALKED TO ALINE. WAITING ON ROOM , HIGH CENSUS, LONGER THANT NORMAL WAIT TIME. DC DEPENDENT
--- NOTE | 2021-03-18 07:30 | NURSING ---
HOSPITALIST FOR DR GONSALVES
--- NOTE | 2021-03-18 07:34 | NURSING ---
MED SURG [facility] NEUTROPENIC FEVER
--- NOTE | 2021-03-18 07:35 | NURSING ---
PCU [facility] ACUTE RENAL FAILURE OBS
[2021-03-18] MEDS: 0.9% Normal Saline 1,000 ML 75 ML IV ×2 (08:57→22:15)
[2021-03-18 09:50] LABS: Anion Gap 13 (5-15); BUN 151 mg/dL (7-18); BUN/Creat Ratio 21.9 RATIO (10-20); Calcium,Total 8.9 mg/dL (8.5-10.1); Chloride 119 mmol/L (98-107); Creatinine, Serum 6.88 mg/dL (0.70-1.30); EST Glomerular Filtration Rate 9 mL/min (>60); Est Glom Filt Rate - Afr Amer 10 mL/min (>60); Estimated Creatinine Clearance 8.49 ml/min; Glucose 99 mg/dL (74-106); Potassium 5.7 mmol/L (3.5-5.1); Sodium Level 142 mmol/L (136-145)
--- NOTE | 2021-03-18 12:40 | PCM.CONS.R ---
Assessment & Plan Assessment/Plan (1) ESRD (end stage renal disease): PLAN: start dialysis today for uremic symptoms. Arrange outpt dialysis at [facility] qTTS (2) History of renal transplant: PLAN: failed LRD kidney tx 2006 from brother. Continue IS therapy same except for MMF decrease dose to 500mg twice a day. Discussed with [facility] transplant drafter automotive design layout. Currently on transplant cadaver list at [facility]. (3) Acute uremia: PLAN: initiate dialysis (4) Hyperkalemia, diminished renal excretion: PLAN: follow low K diet, remains on ACEI, CNI. Correct with dialysis (5) Failed kidney transplant: PLAN: as above (6) Anemia in CKD (chronic kidney disease): PLAN: check iron studies, start AYANNA on dialysis (7) Metabolic acidosis: PLAN: due to renal failure, GI loss. Correct with dialysis HPI Consult Data Date of Consult: 03/18/21 HPI Narrative HPI Narrative: LATONIA SALEEM, is a 71 M who presents to ED for nausea, vomiting, diarrhea past 15 days. He was found to be hyperkalemic with K 6, anemic with hgb 9.5g. He had a LRD kidney transplant from his brother 14 years ago at [facility]. Remains on IS therapy. Creatinine has been in the 4 range now at 6.88 BUN 151. He has tremors, anorexia, low urine output despite torsemide. He is on an ACEI for hypertension, cellcept, prednisone and cyclosporine managed by [facility] transplant. 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 His is at his bedside. They are in agreement to initiate dialysis today and arrange outpt dialysis in town. Discussed with [facility] transplant drafter automotive design layout Dr Patel regarding IS therapy. He is on cadaver transplant list for second allograft. [facility] Medical History (Updated 03/18/21 @ 17:[address] Samina Leal DO) Anxiety Depression Dialysis patient Hypertension Kidney disease Kidney transplant candidate Sleep apnea Home Medications Amlodipine-Benazepril 2.5-10 1 tab PO DAILY 06/27/20 [History Last Taken Unknown] prednisone 5 mg PO DAILY 06/27/20 [History Last Taken Unknown] torsemide 20 mg PO DAILY 06/27/20 [History Last Taken Unknown] Cyclosporine 100 mg PO BID 06/28/20 [History Last Taken Unknown] gabapentin 200 mg PO QHS 06/28/20 [History Last Taken Unknown] mycophenolate mofetil 1,000 mg PO BID 06/28/20 [History Last Taken Unknown] Allergy/AdvReac Type Severity Reaction Status Date / Time cephalexin [From Keflex] Allergy Swelling Verified 03/17/21 19:34 triamcinolone [From Kenalog] Allergy Swelling Verified 03/17/21 19:34 Family History Father CVA (cerebral vascular accident) Surgical History (Updated 03/18/21 @ 01:[address] Albaro Hernandez MD) Kidney transplant recipient Status post fracture of right tibia Social History Smoking Status: Never smoker ROS Constitutional Constitutional: Reports weight loss; Denies chills, fever(s) or malaise Eyes Eyes: Denies loss of vision ENT HEENT: Denies loss taste/smell Cardiovascular Cardiovascular: Denies chest pain, dyspnea on exertion, palpitations or syncope Respiratory/Chest Respiratory/Chest: Denies cough, dyspnea, dyspnea on exertion, shortness of breath at rest or shortness of breath with exertion Gastrointestinal Gastrointestinal: Reports anorexia, diarrhea, loose stools, nausea, vomiting and other Details: loose stools 4-6 x a day ; Denies abdominal pain, constipation, hematochezia or melena Genitourinary Genitourinary: Reports difficulty urinating and other Details: decreased urine output ; Denies burning urination, dysuria, hematuria or urinary frequency Musculoskeletal Musculoskeletal: Denies back pain or neck pain Integumentary Integumentary: Denies rash Neurologic Neurologic: Reports tremor(s) and weakness; Denies dizziness, focal weakness or headache(s) Psychiatric Psychiatric: Denies anxiety or depression Hematologic/Lymphatic Hematologic/Lymphatic: Reports anemia Physical Exam Const alert and oriented x3 HEENT normocephalic Cardio regular rate, no murmurs and no rub GI non-tender and non-distended Auscultation: normoactive bowel sounds Palpation: soft Bladder / Kidney Exam: bladder normal to palpation Back/Spine normal ROM Extremity Extremity Narrative: gen weakness Peripheral Pulses: Yes pulses 2+ throughout Skin no rashes or lesions noted Neuro Sensorium / Orientation: awake and alert Motor Exam: tremor and asterixis Psych cooperative Mood & Affect: Negative for depressed or anxious Lab / Micro Data Result Diagrams: 03/17/21 20:00 03/18/21 09:26 Labs: Laboratory Results - last 24 hr 03/17/21 03/17/21 03/18/21 20:00 20:00 00:18 WBC 5.8 RBC 3.24 L Hgb 9.5 L Hct 32.5 L MCV 100.3 H MCH 29.3 MCHC 29.2 L RDW Std Deviation 51.6 H RDW Coeff of Rani 14.0 Plt Count 153 MPV 11.1 Immature Gran % (Auto) 0.300 Neut % (Auto) 81.1 H Lymph % (Auto) 8.5 L Thomas % (Auto) 8.9 Eos % (Auto) 1.0 Baso % (Auto) 0.2 Absolute Neuts (auto) 4.7 Absolute Lymphs (auto) 0.49 L Nucleated RBC % 0 Differential Comment SCANNED Platelet Estimate ADEQUATE Anisocytosis RARE Macrocytosis RARE Sodium 141 Potassium 6.1 H* 6.0 H* Chloride 117 H Carbon Dioxide 11.0 L Anion Gap 13 BUN 157 H* Creatinine 7.07 H Estim Creat Clear Calc 8.26 Est GFR (MDRD) Af Amer 10 L Est GFR (MDRD) Non-Af 8 L BUN/Creatinine Ratio 22.2 H Glucose 105 Calcium 8.7 Total Bilirubin 0.50 AST 4 L ALT 9 L Alkaline Phosphatase 54 Troponin I 0.164 H Total Protein 6.7 Albumin 4.0 Globulin 2.7 Albumin/Globulin Ratio 1.5 03/18/21 09:26 WBC RBC Hgb Hct MCV MCH MCHC RDW Std Deviation RDW Coeff of Rani Plt Count MPV Immature Gran % (Auto) Neut % (Auto) Lymph % (Auto) Thomas % (Auto) Eos % (Auto) Baso % (Auto) Absolute Neuts (auto) Absolute Lymphs (auto) Nucleated RBC % Differential Comment Platelet Estimate Anisocytosis Macrocytosis Sodium 142 Potassium 5.7 H Chloride 119 H Carbon Dioxide 10.0 L Anion Gap 13 BUN 151 H* Creatinine 6.88 H Estim Creat Clear Calc 8.49 Est GFR (MDRD) Af Amer 10 L Est GFR (MDRD) Non-Af 9 L BUN/Creatinine Ratio 21.9 H Glucose 99 Calcium 8.9 Total Bilirubin AST ALT Alkaline Phosphatase Troponin I Total Protein Albumin Globulin Albumin/Globulin Ratio Micro: Microbiology 03/18/21 01:55 SARS-CoV-2 Antigen (Rapid) - Final Mucosa - Nose
--- NOTE | 2021-03-18 13:45 | PCM.HP.STD ---
HPI - General General Date of Admission: 03/18/21 HPI Narrative LATONIA SALEEM, is a 71 M who presents to the hospital with acute kidney injury and hyperkalemia. He had seen his PCP who had told him to come to the ER secondary to his hyperkalemia. He states that for about the last 10 days he has had GI issues with nausea and vomiting as well as diarrhea. Though for the last couple of days he has had difficulty with vomiting and diarrhea at the same time. He has had a decreased p.o. intake because of this plus he says for the last several months he has had a loss of appetite secondary to food not tasting the same. He does have an extensive history with renal disease as he had received a kidney transplant in the past and is currently on the transplant list again. He initially presented wanting to go to [facility] however they were full and did not have any beds for him and therefore he was admitted to this institution. He denies any sick contacts at home denies any fevers or chills. [facility] Medical History (Updated 03/18/21 @ 14:[address] Louie Pineda MD) Anxiety Depression Dialysis patient Hypertension Kidney disease Kidney transplant candidate Sleep apnea Home Medications Amlodipine-Benazepril 2.5-10 1 tab PO DAILY 06/27/20 [History Last Taken Unknown] prednisone 5 mg PO DAILY 06/27/20 [History Last Taken Unknown] torsemide 20 mg PO DAILY 06/27/20 [History Last Taken Unknown] Cyclosporine 100 mg PO BID 06/28/20 [History Last Taken Unknown] gabapentin 200 mg PO QHS 06/28/20 [History Last Taken Unknown] mycophenolate mofetil 1,000 mg PO BID 06/28/20 [History Last Taken Unknown] Allergy/AdvReac Type Severity Reaction Status Date / Time cephalexin [From Keflex] Allergy Swelling Verified 03/17/21 19:34 triamcinolone [From Kenalog] Allergy Swelling Verified 03/17/21 19:34 Family History Father CVA (cerebral vascular accident) Surgical History (Updated 03/18/21 @ 01:[address] Albaro Hernandez MD) Kidney transplant recipient Status post fracture of right tibia Social History Smoking Status: Never smoker ROS Constitutional Constitutional: Reports malaise and weakness; Denies chills, fatigue or fever(s) Eyes Eyes: Denies blurry vision ENT HEENT: Denies headache(s) or nasal discharge Cardiovascular Cardiovascular: Denies chest pain, dyspnea on exertion or syncope Respiratory/Chest Respiratory/Chest: Denies cough, shortness of breath at rest or shortness of breath with exertion Gastrointestinal Gastrointestinal: Reports diarrhea, nausea and vomiting; Denies constipation Genitourinary Genitourinary: Denies dysuria Neurologic Neurologic: Denies focal weakness, numbness or tremor(s) Psychiatric Psychiatric: Denies anxiety or depression Vital Signs Vital Signs Vital Signs: 03/17/21 19:35 03/17/21 19:55 03/17/21 21:11 Temperature 98.7 F Temperature Source Temporal Pulse Rate 78 71 Respiratory Rate 18 15 Respiratory Effort Respiratory Pattern Normal Blood Pressure 129/65 H Blood Pressure Mean 86 Pulse Ox 99 99 Oxygen Delivery Method Room Air Room Air 03/17/21 23:26 03/18/21 01:00 03/18/21 03:39 Temperature Temperature Source Pulse Rate 69 76 76 Respiratory Rate 21 H 18 21 H Respiratory Effort Respiratory Pattern Blood Pressure 166/77 H 140/61 H Blood Pressure Mean 106 87 Pulse Ox 99 98 98 Oxygen Delivery Method Room Air Room Air Room Air 03/18/21 05:50 03/18/21 07:22 03/18/21 07:55 Temperature 97.4 F L Temperature Source Temporal Pulse Rate 66 65 67 Respiratory Rate 12 15 16 Respiratory Effort Respiratory Pattern Blood Pressure 126/55 H 138/65 H 148/75 H Blood Pressure Mean 78 89 99 Pulse Ox 95 100 97 Oxygen Delivery Method Room Air 03/18/21 08:43 03/18/21 10:00 Temperature 97.4 F L Temperature Source Oral Pulse Rate 68 Respiratory Rate 18 Respiratory Effort Normal Non-Labored Respiratory Pattern Blood Pressure 156/67 H Blood Pressure Mean 96 Pulse Ox 98 Oxygen Delivery Method Room Air Room Air Weight Weight: 148 lb 1.6 oz Body Mass Index (BMI) 25.4 Physical Exam Const alert, oriented x3 and no apparent distress General Appearance: cooperative HEENT normocephalic Mouth: dry mucous membranes Eyes PERRL, EOMs intact bilaterally and conjunctivae normal Neck supple and no JVD Resp normal respiratory effort, no retractions, no use of accessory muscles and clear to auscultation bilaterally Auscultation: Negative for crackles, rales, rhonchi or wheezes Cardio regular rate, regular rhythm, S1 normal heart sound and S2 normal heart sound Heart Sounds: murmur systolic II/ right sternal border GI soft to palpation, non-tender and non-distended; Negative for hepatosplenomegaly Extremity no clubbing, cyanosis or edema Skin no rashes or lesions noted Neuro no focal motor deficits and no sensory deficits noted Psych affect normal Appearance: appropriate Results Lab / Micro Data Result Diagrams: 03/17/21 20:00 03/18/21 09:26 Labs: Laboratory Results - last 24 hr 03/17/21 03/17/21 03/18/21 20:00 20:00 00:18 WBC 5.8 RBC 3.24 L Hgb 9.5 L Hct 32.5 L MCV 100.3 H MCH 29.3 MCHC 29.2 L RDW Std Deviation 51.6 H RDW Coeff of Rani 14.0 Plt Count 153 MPV 11.1 Immature Gran % (Auto) 0.300 Neut % (Auto) 81.1 H Lymph % (Auto) 8.5 L [place] % (Auto) 8.9 Eos % (Auto) 1.0 Baso % (Auto) 0.2 Absolute Neuts (auto) 4.7 Absolute Lymphs (auto) 0.49 L Nucleated RBC % 0 Differential Comment SCANNED Platelet Estimate ADEQUATE Anisocytosis RARE Macrocytosis RARE Sodium 141 Potassium 6.1 H* 6.0 H* Chloride 117 H Carbon Dioxide 11.0 L Anion Gap 13 BUN 157 H* Creatinine 7.07 H Estim Creat Clear Calc 8.26 Est GFR (MDRD) Af Amer 10 L Est GFR (MDRD) Non-Af 8 L BUN/Creatinine Ratio 22.2 H Glucose 105 Calcium 8.7 Total Bilirubin 0.50 AST 4 L ALT 9 L Alkaline Phosphatase 54 Troponin I 0.164 H Total Protein 6.7 Albumin 4.0 Globulin 2.7 Albumin/Globulin Ratio 1.5 03/18/21 09:26 WBC RBC Hgb Hct MCV MCH MCHC RDW Std Deviation RDW Coeff of Rani Plt Count MPV Immature Gran % (Auto) Neut % (Auto) Lymph % (Auto) [place] % (Auto) Eos % (Auto) Baso % (Auto) Absolute Neuts (auto) Absolute Lymphs (auto) Nucleated RBC % Differential Comment Platelet Estimate Anisocytosis Macrocytosis Sodium 142 Potassium 5.7 H Chloride 119 H Carbon Dioxide 10.0 L Anion Gap 13 BUN 151 H* Creatinine 6.88 H Estim Creat Clear Calc 8.49 Est GFR (MDRD) Af Amer 10 L Est GFR (MDRD) Non-Af 9 L BUN/Creatinine Ratio 21.9 H Glucose 99 Calcium 8.9 Total Bilirubin AST ALT Alkaline Phosphatase Troponin I Total Protein Albumin Globulin Albumin/Globulin Ratio Micro: Microbiology 03/18/21 01:55 SARS-CoV-2 Antigen (Rapid) - Final Mucosa - Nose Assessment & Plan Assessment/Plan (1) Acute on chronic renal failure: QUALIFIERS: Chronic kidney disease stage: stage 5, not on chronic dialysis Acute renal failure type: unspecified Qualified Code(s): N17.9 - Acute kidney failure, unspecified; N18.5 - Chronic kidney disease, stage 5 (2) Hyperkalemia, diminished renal excretion: (3) Acute uremia: (4) Viral gastroenteritis: PLAN: 1. BRIAN on CKD 5 secondary to dehydration from a viral gastroenteritis/history of renal transplantation/hypertension/anemia of chronic disease -Continue with gentle IV fluid hydration -He does have a fistula in his left upper extremity and will consult nephrology for initiation of dialysis -I did discuss the case briefly with his juice standardizer at the [facility] who is okay with starting dialysis down here -Potassium has improved as his creatinine with the fluid hydration -Continue with cyclosporine and prednisone but would discontinue his torsemide and decrease his CellCept to 500 mg per recommendations by nephrology -Troponin is elevated secondary to his renal failure, he does not have any chest pain -We will hold his combination blood pressure medication pending evaluation of his tolerance of dialysis -Hemoglobin is at baseline DVT: Low risk given observation status Charges/Coding Visit Charges OBSV E&M: 65506 Initial observation care L2
--- NOTE | 2021-03-18 15:58 | CASEMGMT ---
KIERA ALONZO NOTE: KIERA ALONZO notified pt will need [facility] HD [facility]. Per Dr Samina Leal's consult note, pt/ are in agreeance. KIERA ALONZO to room to talk w/pt and who is at bedside. Discussed options of dialysis centers consistent w/pt's preferred geographic region and medical needs. Pt/'s preferred provider is [facility] in [place] and they would prefer T/TH/Sat schedule, as pt teaches remotely on Mondays and Wednesdays. New OP dialysis referral sent via [facility] on-line portal and referral packet faxed to [facility] at this time. Awaiting acceptance and insurance approval from [facility]. Call placed to Julia @ [facility]. She states she has been notified by Dr Leal re: new referral and anticipate initial OP dialysis @ [facility] to begin 03/20/[address] Leal. Julia states tentative chair time is T/TH/Sat @ noon. CM to fax Hep B surface antigen results and Dialysis tx notes when available. Franklin MOJICA RN CM
--- NOTE | 2021-03-18 17:17 | DIALYSIS ---
Report from primary RN, Sachin Argueta Access: Left upper arm AVF: Site benign, thrill and bruit present, cannulated with 16 gauge needles without issue. [place] taped securely to patient's arm.
--- NOTE | 2021-03-18 20:39 | DIALYSIS ---
Hemodialysis complete. 3.0 hours, 2k bath, net fluid balance = 0 ml. Patient tolerated HD tx well. Access: Left upper arm AVF. Site benign, thrill and bruit present. Needle site pressure held 10 min each. Hemostasis achieved. Patient alert and oriented x person and time. Patient periodically confuses. Report given to primary RNKim
[2021-03-18 21:16] LABS: Bedside Glucose 97 mg/dL (70-110)
--- NOTE | 2021-03-18 21:19 | CT_ITS ---
We are attempting to reach an attending provider to discuss findings. An addendum with communication details will be sent when the communication is complete. STUDY: CT HEAD STROKE PROTOCOL W/O CONTRAST INJECTION REASON FOR EXAM: Male, 71 years old. Stroke RADIATION DOSAGE (If Supplied By Facility): CTDIvol = ( ) mGy, DLP = ( 796.11 ) mGycm TECHNIQUE: Transaxial CT imaging of the brain was performed without administration of intravenous contrast material. Individualized dose optimization techniques were used for this CT. COMPARISON: No relevant priors. FINDINGS: Normal soft tissue structures. Normal calvarium. Calcification of cavernous carotids Mild atrophy and periventricular white matter ischemic changes.. Normal basal ganglia and thalami. Normal brainstem. Normal cerebellum. Partial empty sella deformity likely of no significance There is no intracranial hemorrhage. There are no findings of an acute ischemic infarction. Normal visualized paranasal sinuses. ASPECT score: 10 CT/STROKE Brain/Head without Cont IMPRESSION: Mild atrophy and periventricular white matter ischemic change. No evidence for acute bleed. If concern for acute infarct MRI recommended. Electronically Signed: Leo Quezada MD at 21:32 EDT , Service support ,
--- NOTE | 2021-03-18 21:43 | CT_ITS ---
We are attempting to reach an attending provider to discuss findings. An addendum with communication details will be sent when the communication is complete. STUDY: CTA HEAD AND NECK WITH CONTRAST REASON FOR EXAM: Male, 71 years old. Stroke Alert RADIATION DOSAGE (If Supplied By Facility): CTDIvol = ( 20.20 ) mGy, DLP = ( 749.30 ) mGycm TECHNIQUE: CT angiography was performed with a multi-detector CT scanner. Data acquisition was obtained from the skull base through the vertex following intravenous administration of IV 100mL Isovue-370. MIP images were reconstructed from the axial data set. Post-processing of the angiographic images was performed, with multiplanar reformation and 3D reconstruction. Individualized dose optimization techniques were used for this CT. COMPARISON: No relevant priors. FINDINGS: Normal bilateral petrous carotid arteries. Mild calcific plaquing of the right cavernous carotid artery with a normal supraclinoid bifurcation. Mild calcific plaquing of the left cavernous carotid artery with a normal supraclinoid bifurcation. Normal right A1 segments of the anterior cerebral artery. Normal left A1 segments of the anterior cerebral artery. Anterior communicating artery not visualized consistent with normal variant). Normal bilateral A2 segments of the anterior cerebral arteries. Normal right M1 and M2 segments of the middle cerebral arteries, with a normal M1 bifurcation. Normal left M1 and M2 segments of the middle cerebral arteries, with a normal M1 bifurcation. Normal right posterior communicating artery (PCOM). Left posterior communicating artery not visualized consistent with normal variant Normal bilateral vertebral arteries. Normal basilar artery with a normal basilar bifurcation. The visualized bilateral superior cerebellar (SCA) arteries are normal. Normal bilateral P1, P2 and visualized P3 segments of the posterior cerebral arteries. There is no demonstrated aneurysm of the [place]. AORTIC ARCH: Normal visualized aortic arch. Normal origins of the brachiocephalic, left common carotid, and left subclavian arteries. RIGHT CAROTID ARTERIES: Normal right common carotid artery (CCA). Minor calcific plaquing of the right common carotid bulb. Mild calcific plaquing of the origin of the right internal carotid (ICA) artery without a hemodynamically significant stenosis. Normal visualized cervical portion of the right internal carotid artery. Normal origin of the right external carotid artery (ECA). LEFT CAROTID ARTERIES: Moderate calcific plaquing of the left common carotid artery (CCA). Moderate calcific plaquing of the left common carotid bulb creating hemodynamically significant stenosis. Moderate calcific plaquing of the origin of the left internal carotid (ICA) artery with hemodynamically significant stenosis. Normal visualized cervical portion of the left internal carotid artery. Normal origin of the left external carotid artery (ECA). VERTEBRAL ARTERIES: Normal bilateral vertebral arteries. CT/STROKE CTA Head AND Neck W/Con IMPRESSION: Moderate atherosclerotic disease with most severe involvement of the left carotid and hemodynamically significant stenosis of the proximal left internal carotid Electronically Signed: Leo Quezdaa MD at 22:09 EDT , Service support ,
[2021-03-18] MEDS: Epoetin Alfa epbx 10,000 UNITS/ML 10000 UNIT SC (22:12)
[2021-03-18] MEDS: Gabapentin 100 MG Capsule 200 MG PO (22:13)
[2021-03-18] MEDS: Mycophenolate Mofetil 250 MG Capsule 500 MG PO (22:22)
--- NOTE | 2021-03-18 22:28 | PCM.PN.BLA ---
Progress Note Responded to stroke alert. Patient became disoriented after dialysis. Last known well about 4 hours prior to stroke alert as patient slept during dialysis session. NIH 7. CT head no bleed or acite infarct. Discussed with nephrology who said CTA with contrast was ok. Stroke neurologist beamed in and saw patient via video. See teleneurologist note. CTA head and neck showed severe stenosis. Will notify Teleneurologist.
--- NOTE | 2021-03-18 22:49 | PCM.DC.SUM ---
Providers Date of Admission: 03/18/21 Primary Care Physician: Dr. Barry Hallman DO Consultations 03/18/21 11:47 Consult: Nephrology Routine Consulting Provider: Samina Leal Reason for Consult: Determine starting dialysis EMERGENT Consult: No MD Notified: Yes Date Notified: 03/18/21 Time Notified: 11:47 Method of Notification: Verbal Reason For Visit: RENAL FAILURE AND HYPERKALEMIA Diagnosis Discharge Diagnosis (1) ESRD (end stage renal disease): Status: Acute Code(s): N18.6 - End stage renal disease (2) History of renal transplant: Status: Acute Code(s): Z94.0 - Kidney transplant status (3) Acute uremia: Status: Acute Code(s): N19 - Unspecified kidney failure (4) Hyperkalemia, diminished renal excretion: Status: Acute Code(s): E87.5 - Hyperkalemia (5) Failed kidney transplant: Status: Acute Code(s): T86.12 - Kidney transplant failure (6) Anemia in CKD (chronic kidney disease): Status: Chronic Code(s): N18.9 - Chronic kidney disease, unspecified; D63.1 - Anemia in chronic kidney disease (7) Metabolic acidosis: Status: Acute Code(s): E87.2 - Acidosis Medications at Discharge Home Medications Amlodipine-Benazepril 2.5-10 1 tab PO DAILY 06/27/20 prednisone 5 mg PO DAILY 06/27/20 torsemide 20 mg PO DAILY 06/27/20 Cyclosporine 100 mg PO BID 06/28/20 gabapentin 200 mg PO QHS 06/28/20 mycophenolate mofetil 1,000 mg PO BID 06/28/20 Hospital Course Summary of Care Provided Minutes Spent on Discharge: 60 Hospital Course: Patient was admitted to the Hospital because of an abnormal kidney functions and hyperkalemia. He was dialyzed. Just after that dialysis patient appears to be encephalopathic with aphasia and with left upper and left lower extremity weakness. NIH was scored as 7. CT head was unremarkable. Teleneurologist saw patient via video and recommended CTA. CTA was discussed with planetarium sky show technician who said it was okay. CTA head and neck showed severe stenosis of the proximal left internal carotid. Patient was discussed with [facility] and transfer was recommended to [facility]. However because patient was awaiting bed at [facility] where his kidney transplant was done [facility] was notified. [facility] will look for bed as soon as possible and patient will be transferred to [facility] ([facility] ) Physical Exam Narrative Alert . Oriented to place. Does not know the year. Knows the month. Nontraumatic; normocephalic Lung clear to auscultate Heart sounds S1-S2. No murmur, gallop or rubs. Abdomen bowel sounds present soft, nontender nondistended Extremity without edema cyanosis or clubbing. Neuro; strength in left upper extremity 4 out of 5; strength in left lower extremity 5 out of 5. Strength in right upper extremity 5 out of 5. Strength in right lower extremity 5 out of 5. Weight / BMI Weight Weight: 67.2 kg Body Mass Index (BMI) 25.4 ABG / Lab / Microbiology Data Result Diagrams: 03/17/21 20:00 03/18/21 09:26 Laboratory: Laboratory Results - last 24 hr 03/17/21 03/18/21 03/18/21 20:00 00:18 09:26 WBC 5.8 RBC 3.24 L Hgb 9.5 L Hct 32.5 L MCV 100.3 H MCH 29.3 MCHC 29.2 L RDW Std Deviation 51.6 H RDW Coeff of Rani 14.0 Plt Count 153 MPV 11.1 Immature Gran % (Auto) 0.300 Neut % (Auto) 81.1 H Lymph % (Auto) 8.5 L [place] % (Auto) 8.9 Eos % (Auto) 1.0 Baso % (Auto) 0.2 Absolute Neuts (auto) 4.7 Absolute Lymphs (auto) 0.49 L Nucleated RBC % 0 Differential Comment SCANNED Platelet Estimate ADEQUATE Anisocytosis RARE Macrocytosis RARE Sodium 142 Potassium 6.0 H* 5.7 H Chloride 119 H Carbon Dioxide 10.0 L Anion Gap 13 BUN 151 H* Creatinine 6.88 H Estim Creat Clear Calc 8.49 Est GFR (MDRD) Af Amer 10 L Est GFR (MDRD) Non-Af 9 L BUN/Creatinine Ratio 21.9 H Glucose 99 Calcium 8.9 POC Glucose 03/18/21 21:06 WBC RBC Hgb Hct MCV MCH MCHC RDW Std Deviation RDW Coeff of Rani Plt Count MPV Immature Gran % (Auto) Neut % (Auto) Lymph % (Auto) [place] % (Auto) Eos % (Auto) Baso % (Auto) Absolute Neuts (auto) Absolute Lymphs (auto) Nucleated RBC % Differential Comment Platelet Estimate Anisocytosis Macrocytosis Sodium Potassium Chloride Carbon Dioxide Anion Gap BUN Creatinine Estim Creat Clear Calc Est GFR (MDRD) Af Amer Est GFR (MDRD) Non-Af BUN/Creatinine Ratio Glucose Calcium POC Glucose 97 Microbiology: Microbiology 03/18/21 01:55 SARS-CoV-2 Antigen (Rapid) - Final Mucosa - Nose Microbiology 03/18/21 01:55 Mucosa - Nose SARS-CoV-2 Antigen (Rapid) - Final Radiography Diagnostic Testing: Radiology Impression Brain CT 03/18/21 21:19 IMPRESSION: Mild atrophy and periventricular white matter ischemic change. No evidence for acute bleed. If concern for acute infarct MRI recommended. Electronically Signed: Leo Quezada MD at 21:32 EDT , Service support , ADDENDUM: 03/18/21 2141 IMPRESSION: Mild atrophy and periventricular white matter ischemic change. No evidence for acute bleed. If concern for acute infarct MRI recommended. N.B. : The above information has been verbally conveyed by Leo Quezada MD to Dr Alexandro MD, on 03/18/2021 21:34:59 (ET). Electronically Signed: Leo Quezada MD at 21:32 EDT , Service support , Head/Neck CTA 03/18/21 21:43 IMPRESSION: Moderate atherosclerotic disease with most severe involvement of the left carotid and hemodynamically significant stenosis of the proximal left internal carotid Electronically Signed: Leo Quezada MD at 22:09 EDT , Service support , ADDENDUM: 03/18/21 2226 IMPRESSION: Moderate atherosclerotic disease with most severe involvement of the left carotid and hemodynamically significant stenosis of the proximal left internal carotid N.B. : The above information has been verbally conveyed by Leo Quezada MD to Laxmi Garrido NP , [employer], on 03/18/2021 22:19:27 (ET). Electronically Signed: Leo Quezada MD at 22:09 EDT , Service support , Meaningful Use Info Meaningful Use Diagnoses (Choose all that apply): Ischemic CVA CVA Therapy Assessed for PT,OT and/or ST?: Yes Ischemic Stroke Antithrombotic order at d/c?: Yes Dx of Atrial fib/flutter?: No Statins at discharge?: Yes Primary Dx Acute Ischemic CVA?: No IV tPA ordered during stay?: No Reason IV t-PA not ordered: Treatment not Indicated Discharge Plan Admission Admit Date/Time: 03/18/21 07:33 Attending Provider: Louie Pineda Primary Care Provider: Barry Hallman Consulting Providers: Samina Leal Discharge Orders/Prescriptions Prescriptions: No Action prednisone 5 MG tablet 5 mg PO DAILY RF: 0 Amlodipine-Benazepril 2.5-10 1 tab PO DAILY RF: 0 torsemide 20 MG tablet 20 mg PO DAILY RF: 0 mycophenolate mofetil 250 MG capsule 1,000 mg PO BID RF: 0 Cyclosporine 100 MG capsule 100 mg PO BID RF: 0 gabapentin 100 MG capsule 200 mg PO QHS RF: 0 Referrals / Follow Up: Barry Hallman DO [Primary Care Provider] - Charges/Coding Visit Charges Inpatient E&M: 11938 Disch Hosp
--- NOTE | 2021-03-19 01:25 | NURSING ---
Report called to KIERA Gabriel at [facility]. 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 Patient and has also been updated.
[2021-03-19 02:00] VITALS: PULSE 78
[2021-03-19 02:15] VITALS: BP 154/59; PULSE 86; RESP 18; TEMP 37.1; O2SAT 96
[2021-03-19 02:40] VITALS: BP 154/59; PULSE 86; RESP 18; TEMP 37.1; O2SAT 96
[2021-03-19 08:07] LABS: Hepatitis B Surface Antigen Non-Reactive (Nonreactive)
--- NOTE | 2021-03-19 08:21 | CASEMGMT ---
KIERA ALONZO NOTE: Spoke w/Laxmi Escobar @ [facility] [place] and also to [facility]. They were both notified pt has been transferred to [facility] [place]. Laxmi states she will f/u with [facility]. Franklin MOJICA RN CM
== END 2021-03-19 02:40 | disposition short-term general hospital (02) ==
LOC: ED 03-18 01:42 → PCU 03-18 07:48
PROVIDERS: Emergency Medicine; Internal Medicine Nephrology; Admitting Provider Family Medicine; Emergency Provider Emergency Medicine; PCP Student in an Organized Health Care Education/Training Program; Visit Provider Family Medicine
DX: E87.5 Hyperkalemia (principal); I65.22 Occlusion and stenosis of left carotid artery; G47.30 Sleep apnea, unspecified; R29.707 NIHSS score 7; R47.01 Aphasia; R53.1 Weakness; T86.12 Kidney transplant failure; E86.0 Dehydration; I44.0 Atrioventricular block, first degree; N18.6 End stage renal disease; D63.1 Anemia in chronic kidney disease; E87.2 Acidosis; I12.0 Hypertensive chronic kidney disease with stage 5 chronic kidney disease or end stage renal disease; Z79.899 Other long term (current) drug therapy; Z79.52 Long term (current) use of systemic steroids; Y83.0 Surgical operation with transplant of whole organ as the cause of abnormal reaction of the patient, or of later complication, without mention of misadventure at the time of the procedure; Z99.2 Dependence on renal dialysis
CPT/HCPCS: 36415; 70450; 70496; 70498; 80048; 80053; 82962; 84132; 84484; 85025; 87340; 87426; 90937; 93005; 96361; 96365; 96366; 96374; 96375; 97802; 99218; 99285; J7030; Q9967; A4216; G0257; G0378; J0610; J2405; Q5106

== ENCOUNTER 2021-04-04 16:10 | Emergency (ER) | payer OTHER, SELFPAY ==
[2021-03-18 22:00] VITALS: BMI 25.4
[2021-04-04 16:11] VITALS: BP 149/64; PULSE 82; RESP 18; TEMP 36.6; O2SAT 97; BMI 25.1
--- NOTE | 2021-04-04 16:31 | RAD_ITS ---
STUDY: X-RAY - LEFT ANKLE REASON FOR EXAM: Male, 71 years old. ankle pain TECHNIQUE: 3 view(s) of the ankle. COMPARISON: None. FINDINGS: Normal visualized distal tibia and fibula. Normal medial and lateral malleoli. Normal tibiotalar articulation and ankle mortise. Normal visualized talus and calcaneus. The visualized subtalar, talonavicular, calcaneocuboid and tarsal articulations are normal. There are atherosclerotic calcifications. Mild diffuse soft tissue swelling. RAD/Ankle min 3 Views IMPRESSION: No demonstrated fracture malalignment. Mild soft tissue swelling. Electronically Signed: Miguel Flores MD ([place]) at 17:13 EDT , Service support ,
--- NOTE | 2021-04-04 16:32 | ED.VIS.LOWEX ---
HPI History of Present Illness Chief Complaint: Lower Extremity Injury Narrative Narrative: 71-year-old male presenting with left ankle pain and swelling x1 week. He denies history of DVT. He denies numbness or tingling. He states there is pain just lateral to the lateral malleolus. He denies any injury. He states he is on dialysis Tuesday and Tuesday and has been completing this. He just came from dialysis. He has no other complaints at this time. [facility] Medical History Anxiety Depression Dialysis patient Hypertension Kidney disease Kidney transplant candidate Sleep apnea Home Medications prednisone 5 mg PO DAILY 06/27/20 [History Last Taken Unknown] torsemide 20 mg PO DAILY 06/27/20 [History Last Taken Unknown] Cyclosporine 100 mg PO BID 06/28/20 [History Last Taken Unknown] gabapentin 300 mg PO QHS 06/28/20 [History Last Taken Unknown] mycophenolate mofetil 1,000 mg PO BID 06/28/20 [History Last Taken Unknown] amlodipine 5 mg PO DAILY 04/04/21 [History Last Taken Unknown] atorvastatin 40 mg PO QHS 04/04/21 [History Last Taken Unknown] omeprazole 20 mg PO DAILY 04/04/21 [History Last Taken Unknown] Allergy/AdvReac Type Severity Reaction Status Date / Time cephalexin [From Keflex] Allergy Swelling Verified 04/04/21 16:11 triamcinolone [From Kenalog] Allergy Swelling Verified 04/04/21 16:11 Family History Father CVA (cerebral vascular accident) Surgical History Kidney transplant recipient Status post fracture of right tibia Social History Smoking Status: Never smoker ROS ROS ED Constitutional Constitutional ED: Denies fever(s) or subjective Eyes Eyes: Denies blurry vision or change in vision ENT ENT ED: Denies ear pain or rhinorrhea Cardiovascular Cardiovascular: Denies chest pain or palpitations Respiratory/Chest Respiratory/Chest: Denies cough or dyspnea Gastrointestinal Gastrointestinal: Denies abdominal pain, nausea or vomiting Genitourinary Genitourinary ED: Denies dysuria or hematuria Musculoskeletal Musculoskeletal: Reports arthralgias and other Details: Left ankle pain with left ankle and foot swelling ; Denies myalgias Integumentary Denies abscess or rash Neurologic Neurologic: Denies headache(s), paresthesias or weakness EXAM Physical Exam Const Vital Signs: 04/04/21 16:11 Temperature 97.9 F Temperature Source Temporal Pulse Rate 82 Respiratory Rate 18 Blood Pressure 149/64 H Blood Pressure Mean 92 Pulse Ox 97 Oxygen Delivery Method Room Air Positive well nourished General Appearance ED: NAD HEENT normocephalic and atraumatic Eyes PERRL Resp normal respiratory effort and clear to auscultation bilaterally Cardio regular rate and regular rhythm Extremity Extremity Narrative: Tenderness to palpation at adjacent to left lateral malleolus. There is 1+ edema around the ankle. There is no sign of cellulitic changes. There is no deformities. Neuro oriented x3 Sensorium / Orientation: alert Psych mental status grossly normal Skin Lesions: no lesions Rashes: no rashes MDM MDM Lab Data Lab results narrative: Patient presenting with left leg pain and swelling. He has a history of DVT/PE. On exam there is only mild swelling. He is tender at the lateral aspect of the left malleolus. X-ray of the left ankle as interpreted by myself shows no acute fracture or subluxation. There is some's mild soft tissue swelling. The radiologist does agree. I am unable to perform ultrasound to see has arrived after ultrasound is left for today. Patient will given instructions for follow-up tomorrow for duplex of the left lower extremity. I do not believe he needs to be anticoagulated overnight. Patient is given return precautions. Impression: 1. Unilateral leg swelling 2. Left ankle pain Radiography Diagnostic Testing: Radiology Impression Ankle X-Ray 04/04/21 16:31 IMPRESSION: No demonstrated fracture malalignment. Mild soft tissue swelling. Electronically Signed: Miguel Flores MD (Brooks) at 17:13 EDT , Service support , Discharge Plan Triage Chief Complaint: Lower Extremity Injury ED Provider: Orion Euceda Dx/Rx/DC Orders Instructions: ED Peripheral Edema, Unilateral Prescriptions: No Action prednisone 5 MG tablet 5 mg PO DAILY RF: 0 torsemide 20 MG tablet 20 mg PO DAILY RF: 0 mycophenolate mofetil 250 MG capsule 1,000 mg PO BID RF: 0 Cyclosporine 100 MG capsule 100 mg PO BID RF: 0 gabapentin 100 MG capsule 300 mg PO QHS RF: 0 atorvastatin 40 mg tablet 40 mg PO QHS RF: 0 amlodipine 5 mg tablet 5 mg PO DAILY RF: 0 omeprazole 20 mg capsule,delayed release(DR/EC) 20 mg PO DAILY RF: 0 Primary Care Provider: Barry Hallman Referrals: Barry Hallman DO [Primary Care Provider] - Disposition Disposition: Home, Self Care
[2021-04-04 19:23] VITALS: PULSE 75; RESP 16; O2SAT 97
[2021-04-04] MEDS: HYDROcodone Bitartrate/Apap 5/325 Tablet PO (19:31)
== END 2021-04-04 19:42 | disposition home or self-care (01) ==
PROVIDERS: Emergency Provider Student in an Organized Health Care Education/Training Program; PCP Student in an Organized Health Care Education/Training Program
DX: M79.89 Other specified soft tissue disorders (principal); M25.572 Pain in left ankle and joints of left foot; I12.9 Hypertensive chronic kidney disease with stage 1 through stage 4 chronic kidney disease, or unspecified chronic kidney disease; N18.9 Chronic kidney disease, unspecified; Z99.2 Dependence on renal dialysis; Z79.899 Other long term (current) drug therapy; Z86.711 Personal history of pulmonary embolism; Z86.718 Personal history of other venous thrombosis and embolism
CPT/HCPCS: 73610; 99282

== ENCOUNTER → 2021-04-05 11:57 | Outpatient (CLI) | payer OTHER, SELFPAY ==
[2021-04-04 16:11] VITALS: BMI 25.1
--- NOTE | 2021-04-05 12:06 | VDLE_ITS ---
Reason For Study: Pain Procedure LEFT This is a venous duplex using B-mode, color GSV is normal. flow and spectral Doppler. CFV is compressible, spontaneous, phasic, Exam performed in department. competent, and demonstrates normal A preliminary report was called and/or faxed augmentation. to ED. FV is compressible, spontaneous, phasic, Patient taken to ED. competent and demonstrates normal augmentation. POP V is compressible, spontaneous, phasic, competent and demonstrates normal augmentation. T/P Trunk is compressible. Lt PTV prox and Lt PeroV prox are dilated and non compressible consistent with acute DVT. VL/Venous Duplex US, Unilateral Interpretation Summary Acute deep venous thrombosis left proximal posterior tibial and peroneal veins. Patent, compressible left great saphenous vein Ordering Physician: Orion Euceda Referring Physician: Barry Hallman Performed By: Irene Smith, JULIO CESAR, RVT
== END ==
PROVIDERS: PCP Student in an Organized Health Care Education/Training Program; Visit Provider Student in an Organized Health Care Education/Training Program
DX: M79.605 Pain in left leg (principal)
CPT/HCPCS: 93971

== ENCOUNTER 2021-04-05 12:41 | Emergency (ER) | payer OTHER, SELFPAY ==
[2021-04-04 16:11] VITALS: BMI 25.1
[2021-04-05 12:42] VITALS: BP 142/70; PULSE 80; RESP 18; TEMP 36.1; O2SAT 99; BMI 24.9
--- NOTE | 2021-04-05 13:26 | NURSING ---
PAGED DR PENA THROUGH [facility] NURSE [employer] MANAGER [phone]
--- NOTE | 2021-04-05 13:27 | ED.VIS.LOWEX ---
HPI History of Present Illness Chief Complaint: Lower Extremity Injury Informant: patient and spouse/S.O. Narrative Narrative: 71-year-old male reports experiencing foot pain for greater than a week. He notes some occasional radiation to the lower leg. He states that he was seen in the emergency room last night and had x-rays which were negative. He was given some hydrocodone and came back today for duplex ultrasound. The ultrasound showed a left posterior tibial and left peroneal vein DVT. He was then brought back to the emergency room. Patient is currently on dialysis. [facility] Medical History Anxiety Depression Dialysis patient Hypertension Kidney disease Kidney transplant candidate Sleep apnea Home Medications prednisone 5 mg PO DAILY 06/27/20 [History Last Taken Unknown] Cyclosporine 100 mg PO BID 06/28/20 [History Last Taken Unknown] gabapentin 300 mg PO QHS 06/28/20 [History Last Taken Unknown] amlodipine 5 mg PO DAILY 04/04/21 [History Last Taken Unknown] atorvastatin 40 mg PO QHS 04/04/21 [History Last Taken Unknown] hydrocodone-acetaminophen 1 tab PO Q6H PRN PRN 1 Days #2 tablet 04/04/21 [Rx Last Taken Unknown] omeprazole 20 mg PO DAILY 04/04/21 [History Last Taken Unknown] Allergy/AdvReac Type Severity Reaction Status Date / Time cephalexin [From Keflex] Allergy Swelling Verified 04/05/21 12:44 triamcinolone [From Kenalog] Allergy Swelling Verified 04/05/21 12:44 Family History Father CVA (cerebral vascular accident) Surgical History Kidney transplant recipient Status post fracture of right tibia Social History (Updated 04/05/21 @ 13:[address] Panchito Hilario DO) Smoking Status: Never smoker substance use type: does not use ROS ROS ED Constitutional Constitutional ED: Denies chills or weight loss Eyes Eyes: Denies change in vision or diplopia ENT ENT ED: Denies ear pain, rhinorrhea or sore throat Cardiovascular Cardiovascular: Denies chest pain, orthopnea, palpitations or racing heartbeat Respiratory/Chest Respiratory/Chest: Denies cough, dyspnea or orthopnea Gastrointestinal Gastrointestinal: Denies abdominal pain, diarrhea, nausea or vomiting Genitourinary Genitourinary ED: Denies dysuria, hematuria or urinary frequency Musculoskeletal Musculoskeletal: Reports other Details: Left foot pain ; Denies arthralgias or myalgias Integumentary Denies abscess or rash Neurologic Neurologic: Denies headache(s) or weakness Psychiatric Psychiatric: Denies anxiety, depression, suicidal ideation or suicidal thoughts Endocrine Endocrinology: Denies polydipsia, polyphagia or polyuria Allergic/Immunologic Allergic/Immunologic ED: Denies mouth swelling, tongue swelling or urticaria EXAM Physical Exam Const Vital Signs: 04/05/21 12:42 Temperature 97 F L Temperature Source Temporal Pulse Rate 80 Respiratory Rate 18 Blood Pressure 142/70 H Blood Pressure Mean 94 Pulse Ox 99 Oxygen Delivery Method Room Air Positive well nourished and well developed General Appearance ED: well developed HEENT Reports normocephalic, head/scalp atraumatic and moist mucous membranes Eyes PERRL and EOMs intact bilaterally Neck no lymphadenopathy, supple and no JVD Resp normal respiratory effort and clear to auscultation bilaterally Cardio regular rate, regular rhythm and no murmurs GI normal to inspection, nondistended, normoactive bowel sounds and non-tender Palpation: soft Back/Spine no CVA tenderness and normal ROM Extremity normal to inspection Extremity Narrative: Patient appears neurovascularly intact. General Extremety ED: Negative for edema General Extremity: Negative for edema Neuro oriented x3 and CN's II-XII intact bilaterally Sensorium / Orientation: alert Motor Exam: strength 5/5 throughout Psych mental status grossly normal Mood & Affect: Negative for depressed or tearful Skin no rashes or lesions noted and no wounds MDM MDM MDM Narrative Medical decision making narrative: I reviewed the patient's duplex ultrasound. They are all below the knee and the posterior tibial and peroneal vein and not into the popliteal vein. He is on dialysis and I think putting him on full anticoagulation will put him at a significant bleeding risk. I think the safest option would be to do serial ultrasounds. I spoke with his on-call physician Dr. Agustin. He will follow up in the office. Discharge Plan Triage Chief Complaint: Lower Extremity Injury ED Provider: Panchito Hilario Dx/Rx/DC Orders Clinical Impression: Deep venous thrombosis of lower leg Instructions: Understanding Deep Vein Thrombosis Prescriptions: No Action prednisone 5 MG tablet 5 mg PO DAILY RF: 0 Cyclosporine 100 MG capsule 100 mg PO BID RF: 0 gabapentin 100 MG capsule 300 mg PO QHS RF: 0 atorvastatin 40 mg tablet 40 mg PO QHS RF: 0 amlodipine 5 mg tablet 5 mg PO DAILY RF: 0 omeprazole 20 mg capsule,delayed release(DR/EC) 20 mg PO DAILY RF: 0 hydrocodone-acetaminophen 5-325 mg tablet 1 tab PO Q6H PRN PRN (Reason: Pain) 1 Days Qty: 2 RF: 0 Primary Care Provider: Barry Hallman Referrals: Barry Hallman DO [Primary Care Provider] - As soon as possible Disposition Disposition: Home, Self Care
--- NOTE | 2021-04-05 14:06 | NURSING ---
PAGED DR JEAN PENA RETURNED CALL
[2021-04-05 14:39] VITALS: RESP 18
== END 2021-04-05 14:40 | disposition home or self-care (01) ==
PROVIDERS: Emergency Provider Emergency Medicine; PCP Student in an Organized Health Care Education/Training Program
DX: I82.452 Acute embolism and thrombosis of left peroneal vein (principal); I82.442 Acute embolism and thrombosis of left tibial vein; I82.432 Acute embolism and thrombosis of left popliteal vein; Z99.2 Dependence on renal dialysis; I12.9 Hypertensive chronic kidney disease with stage 1 through stage 4 chronic kidney disease, or unspecified chronic kidney disease; N18.9 Chronic kidney disease, unspecified; F41.9 Anxiety disorder, unspecified; F32.9 Major depressive disorder, single episode, unspecified; Z79.899 Other long term (current) drug therapy
CPT/HCPCS: 99282

== ENCOUNTER → 2021-04-10 09:07 | Outpatient (CLI) | payer OTHER, SELFPAY ==
[2021-04-05 12:42] VITALS: BMI 24.9
--- NOTE | 2021-04-10 09:10 | VDLE_ITS ---
Reason For Study: DVT LLE RIGHT LEFT CFV is compressible, spontaneous, phasic, GSV is normal. competent and demonstrates normal CFV is compressible, spontaneous, phasic, augmentation. competent, and demonstrates normal augmentation. FV is compressible, spontaneous, phasic, competent and demonstrates normal augmentation. POP V is compressible, spontaneous, phasic, competent and demonstrates normal augmentation. T/P Trunk is compressible. PTV is compressible. Lt PeroV is dilated and non compressible consistent with acute DVT Lt PTV DVT has resolved. VL/Venous Duplex US, Unilateral Interpretation Summary Acute deep vein thrombosis is noted in the left peroneal vein. The remainder of the left lower extremity deep venous system is patent and compressible. Valvular competence ap pears intact within the proximal deep venous system on the left . The left great saphenous vein mattie ears patent and compressible segmentally. There has been improvement since a prior study on 03/11. Ordering Physician: Panchito Hilario Referring Physician: Barry Hallman Performed By: Irene Smith, JULIO CESAR, RVT
== END ==
PROVIDERS: PCP Student in an Organized Health Care Education/Training Program; Referring Provider Emergency Medicine; Visit Provider Emergency Medicine
DX: I82.402 Acute embolism and thrombosis of unspecified deep veins of left lower extremity (principal)
CPT/HCPCS: 93971

== ENCOUNTER 2022-03-15 03:38 | Emergency (ER) | payer OTHER, SELFPAY ==
[2022-03-15 03:39] VITALS: BP 178/79; PULSE 92; RESP 16; TEMP 37.1; O2SAT 98; BMI 26.5
--- NOTE | 2022-03-15 04:11 | EDS_ITS ---
HPI History of Present Illness Chief Complaint: General Illness Informant: patient Onset/Context/Timing Onset: Today Context: Gradual Onset Timing: Continuous Quality: Shaking Location: Generalized Worsened by: Nothing Relieved by: Nothing Narrative Narrative: Patient presents with episode of shaking and sweating that began this morning. Patient states he got up to urinate when he felt dizzy and lightheaded. Patient states he was sweating while he was sleeping. Patient states he felt shaky when he got up. Patient states he felt like his heart was racing at times. Patient admits to some shortness of breath with this. Patient states he was able to urinate approximately 300 mL. Patient states that he had a kidney transplant approximately 7 weeks ago. Patient had one of his drains fall out yesterday. Patient states he contacted the transplant center at [facility] after his drain fell out and they told him to continue to watch for further drainage. [facility] Medical History Anxiety Depression Dialysis patient Hypertension Kidney disease Kidney transplant candidate Sleep apnea Home Medications prednisone 10 mg PO DAILY 06/27/20 [History Last Taken Unknown] gabapentin 300 mg PO QHS 06/28/20 [History Last Taken Unknown] amlodipine 5 mg PO DAILY 04/04/21 [History Last Taken Unknown] atorvastatin 40 mg PO QHS 04/04/21 [History Last Taken Unknown] omeprazole 20 mg PO DAILY 04/04/21 [History Last Taken Unknown] aspirin 81 mg PO DAILY 03/15/22 [History Last Taken Unknown] docusate sodium [Colace] 50 mg PO BID 03/15/22 [History Last Taken Unknown] mycophenolate mofetil [CellCept] 500 mg PO BID 03/15/22 [History Last Taken Unknown] tacrolimus [Prograf] 3 mg PO DAILY 03/15/22 [History Last Taken Unknown] valganciclovir [Valcyte] 450 mg PO DAILY 03/15/22 [History Last Taken Unknown] Allergy/AdvReac Type Severity Reaction Status Date / Time cephalexin [From Keflex] Allergy Swelling Verified 03/15/22 03:43 triamcinolone [From Kenalog] Allergy Swelling Verified 03/15/22 03:43 Family History Father CVA (cerebral vascular accident) Surgical History Kidney transplant recipient Status post fracture of right tibia Social History Smoking Status: Never smoker substance use type: does not use ROS ROS ED Constitutional Constitutional ED: Reports sweats; Denies chills or fever(s) Eyes Eyes: Denies blurry vision or change in vision ENT ENT ED: Denies rhinorrhea or sore throat Cardiovascular Cardiovascular: Reports racing heartbeat; Denies chest pain or palpitations Respiratory/Chest Respiratory/Chest: Reports dyspnea; Denies cough Gastrointestinal Gastrointestinal: Denies nausea or vomiting Genitourinary Genitourinary ED: Denies dysuria or hematuria Musculoskeletal Musculoskeletal: Reports back pain; Denies neck pain Integumentary Denies abscess or rash Neurologic Neurologic: Denies headache(s) or weakness Allergic/Immunologic Allergic/Immunologic ED: Denies mouth swelling or urticaria EXAM Physical Exam Const Vital Signs: 03/15/22 03:39 03/15/22 03:45 03/15/22 05:37 Temperature 98.8 F Temperature Source Oral Pulse Rate 92 95 Respiratory Rate 16 17 Respiratory Effort Non-Labored Respiratory Pattern Normal Blood Pressure 178/79 H 164/74 H Blood Pressure Mean 112 104 Pulse Ox 98 94 Oxygen Delivery Method Room Air Room Air Positive well nourished and well developed General Appearance ED: well developed and NAD HEENT Reports moist mucous membranes Neck supple and no JVD Resp normal respiratory effort and clear to auscultation bilaterally Cardio regular rate, regular rhythm and no murmurs GI normal to inspection, nondistended, normoactive bowel sounds and non-tender Palpation: soft Extremity normal to inspection General Extremety ED: Negative for edema or tenderness General Extremity: Negative for edema Neuro oriented x3, CN's II-XII intact bilaterally and no sensory deficits noted Sensorium / Orientation: alert Motor Exam: strength 5/5 throughout Psych mental status grossly normal Skin no rashes or lesions noted MDM MDM MDM Narrative Medical decision making narrative: Patient was given IV fluids. CBC shows a mild anemia with hemoglobin of 9.7 and hematocrit 30.4. Comprehensive metabolic profile shows a BUN of 21 and creatinine 1.54. Urinalysis does not show any evidence of urinary tract infection. Patient feels better on reevaluation. Patient wants to go home. Patient was instructed to follow-up with his transplant team and primary care physician as scheduled. Patient understood and was agreeable with the plan. All questions were answered. Lab Data Attestation: I reviewed the patient's lab results. Labs: Laboratory Results - last 24 hr 03/15/22 03/15/22 04:26 04:26 WBC 7.5 RBC 3.04 L Hgb 9.7 L Hct 30.4 L MCV 100.0 H MCH 31.9 MCHC 31.9 L RDW Std Deviation 57.1 H RDW Coeff of Rani 15.6 H Plt Count 291 MPV 8.3 Immature Gran % (Auto) 2.400 H Neut % (Auto) 89.1 H Lymph % (Auto) 3.9 L [place] % (Auto) 3.6 Eos % (Auto) 0.7 Baso % (Auto) 0.3 Absolute Neuts (auto) 6.7 Absolute Lymphs (auto) 0.29 L Nucleated RBC % 0 Anisocytosis 1+ Macrocytosis 1+ Sodium 136 Potassium 4.4 Chloride 106 Carbon Dioxide 24.0 Anion Gap 6 BUN 21 H Creatinine 1.54 H Estim Creat Clear Calc 38.83 Est GFR (MDRD) Af Amer 58 L Est GFR (MDRD) Non-Af 48 L BUN/Creatinine Ratio 13.6 Glucose 93 Calcium 8.6 Total Bilirubin 0.50 AST 13 L ALT 21 Alkaline Phosphatase 50 Total Protein 5.8 L Albumin 3.0 L Globulin 2.8 Albumin/Globulin Ratio 1.1 Discharge Plan Triage Chief Complaint: General Illness ED Provider: Mal Paredes Dx/Rx/DC Orders Clinical Impression: Diaphoresis, History of renal transplant Instructions: After Kidney Transplant Prescriptions: No Action prednisone 5 MG tablet 10 mg PO DAILY RF: 0 gabapentin 100 MG capsule 300 mg PO QHS RF: 0 atorvastatin 40 mg tablet 40 mg PO QHS RF: 0 amlodipine 5 mg tablet 5 mg PO DAILY RF: 0 omeprazole 20 mg capsule,delayed release(DR/EC) 20 mg PO DAILY RF: 0 aspirin 81 mg Capsule 81 mg PO DAILY RF: 0 valganciclovir [Valcyte] 450 mg Tablet 450 mg PO DAILY RF: 0 mycophenolate mofetil [CellCept] 250 mg Capsule 500 mg PO BID RF: 0 tacrolimus [Prograf] 1 mg Capsule 3 mg PO DAILY RF: 0 Colace 50 mg Capsule 50 mg PO BID RF: 0 Primary Care Provider: Barry Hallman Referrals: Barry Hallman DO [Primary Care Provider] - 3-5 Days Disposition Disposition: Home, Self Care
[2022-03-15] MEDS: 0.9% Normal Saline 1,000 ML 1000 ML IV (04:35)
[2022-03-15 04:45] LABS: Absolute Lymphocyte Count 0.29 X10^3/uL (0.83-4.51); Absolute Neutrophil Count 6.7 X10^3/uL (2.0-7.7); Basophil# 0.02 X10^3/uL; Basophil% 0.3 % (0-1); Eosinophil# 0.05 X10^3/uL; Eosinophils% 0.7 % (0-5); Hematocrit 30.4 % (40-54); Hemoglobin 9.7 g/dL (13.0-16.5); Lymphocyte # 0.29 X10^3/ul (0.83-4.51); Lymphocyte % 3.9 % (19-41); Mean Corp Hgb Conc 31.9 g/dL (32-36); Mean Corpuscular Hgb 31.9 pg (27.0-32.0); Mean Platelet Vol. 8.3 fl (6.2-12.0); Monocyte# 0.27 X10^3/uL; Monocyte% 3.6 % (0-10); NRBC Flagged by Analyzer 0 % (0-5); Neutrophil # 6.68 X10^3/uL (2.7-7.7); Neutrophil % 89.1 % (47-70); POSITIVE DIFFERENTIAL YES; Platelet Count 291 K/mm3 (150-450); RBC Distribution Width CV 15.6 % (11.6-14.6); RBC Distribution Width SD 57.1 fl (35.1-43.9); Red Blood Count 3.04 M/mm3 (4.6-6.2); White Blood Count 7.5 K/mm3 (4.4-11.0)
[2022-03-15 04:47] LABS: Differential Indicated SCAN CRITERIA MET
[2022-03-15 05:02] LABS: ALB/GLOB Ratio 1.1 RATIO (0.9-2.4); AST(SGOT) 13 U/L (15-37); Alanine Aminotransfer ALT/SGPT 21 U/L (16-61); Alkaline Phosphatase 50 U/L (45-117); Anion Gap 6 (5-15); BUN 21 mg/dL (7-18); BUN/Creat Ratio 13.6 RATIO (10-20); Calcium,Total 8.6 mg/dL (8.5-10.1); Chloride 106 mmol/L (98-107); Creatinine, Serum 1.54 mg/dL (0.70-1.30); EST Glomerular Filtration Rate 48 mL/min (>60); Est Glom Filt Rate - Afr Amer 58 mL/min (>60); Estimated Creatinine Clearance 38.83 ml/min; Globulin 2.8 g/dL (2.2-4.2); Glucose 93 mg/dL (74-106); Potassium 4.4 mmol/L (3.5-5.1); Protein, Total 5.8 g/dL (6.4-8.2); Sodium Level 136 mmol/L (136-145)
[2022-03-15 05:37] VITALS: BP 164/74; PULSE 95; RESP 17; O2SAT 94
[2022-03-15 06:08] LABS: Anisocytosis 1+; Macrocytosis 1+
[2022-03-15 06:15] LABS: Mucous, Urine 0 SEEN /hpf (<or=2+)
[2022-03-15 06:28] LABS: Color, Urine Yellow (Yellow); Glucose, Dipstick Normal (Normal); Ketone-Dipstick Negative (Negative); Leukocyte Esterase-Dipstick 25 /ul (Negative); Nitrite-Dipstick Negative (Negative); Occult Blood-Urine 50 /ul (Negative); Protein-Dipstick 15 mg/dl (Negative); Urine Bilirubin Dipstick Negative (Negative); Urine Clarity Clear (Clear); Urine Urobilinogen Normal (Normal)
[2022-03-15 06:44] LABS: Bacteria RARE /hpf (None Seen); Red Blood Cells-Urine 0-5 SEEN /hpf (0-5); Squamous Epithelial Cells - UA 0-5 SEEN /hpf (0-5); White Blood Cells 0-5 SEEN /hpf (0-5); Yeast-Urine RARE /hpf (None Seen)
[2022-03-15 07:15] VITALS: BP 136/89; PULSE 89; RESP 18; O2SAT 98
== END 2022-03-15 07:16 | disposition home or self-care (01) ==
PROVIDERS: Emergency Provider Emergency Medicine; PCP Student in an Organized Health Care Education/Training Program; Visit Provider Emergency Medicine
DX: R61 Generalized hyperhidrosis (principal); Z99.2 Dependence on renal dialysis; I10 Essential (primary) hypertension; Z94.0 Kidney transplant status; Z79.82 Long term (current) use of aspirin; Z79.899 Other long term (current) drug therapy
CPT/HCPCS: 80053; 81001; 85025; 96360; 96361; 99284; J7030; A4216

== ENCOUNTER → 2022-03-29 | Outpatient (CLI) | payer OTHER, SELFPAY ==
[2022-03-29 12:55] LABS: ALB/GLOB Ratio 1.2 RATIO (0.9-2.4); AST(SGOT) 9 U/L (15-37); Alanine Aminotransfer ALT/SGPT 16 U/L (16-61); Alkaline Phosphatase 58 U/L (45-117); Anion Gap 6 (5-15); BUN 16 mg/dL (7-18); BUN/Creat Ratio 11.7 RATIO (10-20); Calcium,Total 8.7 mg/dL (8.5-10.1); Chloride 107 mmol/L (98-107); Creatinine, Serum 1.37 mg/dL (0.70-1.30); EST Glomerular Filtration Rate 55 mL/min (>60); Est Glom Filt Rate - Afr Amer 66 mL/min (>60); Globulin 2.6 g/dL (2.2-4.2); Glucose 101 mg/dL (74-106); Magnesium 1.7 mg/dL (1.6-2.6); Phosphorus 2.3 mg/dL (2.5-4.9); Potassium 4.5 mmol/L (3.5-5.1); Protein, Total 5.6 g/dL (6.4-8.2); Sodium Level 138 mmol/L (136-145)
== END | disposition home or self-care (01) ==
LOC: LABSPEC 11:47
PROVIDERS: PCP Student in an Organized Health Care Education/Training Program
DX: Z94.0 Kidney transplant status (principal)
CPT/HCPCS: 80053; 83735; 84100